=== PATIENT | female | born 1960 | race Caucasian/White ===

== ENCOUNTER → 2020-10-12 02:48 | Outpatient (CLI) | payer BC, SELFPAY ==
[2020-10-12 19:42] LABS: SARS-CoV-2 RNA PCR Negative
== END ==
PROVIDERS: PCP Family Medicine; Visit Provider Plastic Surgery
DX: Z01.812 Encounter for preprocedural laboratory examination (principal); Z20.822 Contact with and (suspected) exposure to COVID-19
CPT/HCPCS: C9803; U0003; U0005

== ENCOUNTER 2020-10-16 00:45 | Day surgery (SDC) | payer BC, SELFPAY ==
[2020-10-10 10:39] VITALS: BMI 41.5
--- NOTE | 2020-10-15 13:48 | P.PNAN_ITS ---
Anes - Initial Pre Proc Eval Procedure: Operation Date: 10/16/20 08:30 Proposed Procedures p Wide Excision Of Melanoma Right Mid Back With [place] Lymph Node Biopsy - Parker Foster MD s Split Thickness Skin Graft - Parker Foster MD Date/Time: 10/15/20 13:48 Surgeon: Parker Foster MD Pre Op Diagnosis: Melanoma, Right Mid Back Patient Data Age: 60 Gender: F Height: 5 ft 5 in Weight: 113.4 kg Allergies Allergy/AdvReac Type Severity Reaction Status Date / Time No Known Allergies Allergy Unverified 02/20/19 08:40 Home Medications Medication Instructions Recorded Confirmed Type aspirin 81 mg tablet,delayed 81 mg PO DAILY 07/19/19 10/10/20 History release atorvastatin 40 mg tablet 40 mg PO DAILY 07/19/19 10/10/20 History cholecalciferol (vitamin D3) 25 1,000 unit PO DAILY 07/19/19 10/10/20 History mcg (1,000 unit) capsule ldmvonpgtfke-mwcwjhmj-vuudlw tablet 1 tablet PO DAILY 07/19/19 10/10/20 History omega-3 fatty acids 1,000 mg 1,000 mg PO DAILY 07/19/19 10/10/20 History capsule ezetimibe 10 mg tablet 10 mg PO DAILY 10/05/19 10/10/20 History amlodipine 5 mg tablet 5 mg PO DAILY #90 tablet 01/24/20 10/10/20 Rx irbesartan 300 mg tablet 300 mg PO DAILY #90 tablet 01/24/20 10/10/20 Rx metformin 500 mg tablet,extended 1,000 mg PO BID #180 tablet 10/08/20 10/10/20 Rx release 24hr [facility] Past Medical History Medical History (Updated 10/03/20 @ 07:53 by Arvin Hurst MD) Abnormal fasting glucose Anemia Controlled diabetes mellitus (09/26/20) Malignant melanoma (~09/26/20) Woody level greater than IV on right upper back Neoplasm of skin of back Vitamin D deficiency, unspecified Family History Family History (Updated 12/14/18 @ 17:36 by DOCTOR UNKNOWN) Mother Diabetes mellitus, Onset Age: 78 Family history of cardiovascular disease Acute myocardial infarction Father Diabetes mellitus Family history of cardiovascular disease Acute myocardial infarction Cerebrovascular accident Carcinoma of colon Malignant neoplasm of prostate Sibling Diabetes mellitus Grandparent Family history of malignant neoplasm of bone Family history of malignant neoplasm of breast Social History Social History (Updated 09/26/20 @ 09:59 by Brit Ojeda MA) Smoking status: Never smoker Alcohol intake: never Substance use: never Substance use type: does not use Spiritual care concerns: No Anes - Eval Final PreProcedure Day of Procedure 10/15/20 13:48 Informed Consent: The patient's anesthetic plan and its attendant risks and benefits were discussed with the patient/family/POA. Questions were solicited and answers provided to the satisfaction of the patient/family/POA.
--- NOTE | 2020-10-15 15:43 | WPDANESEPPF ---
Anes - Initial Pre Proc Eval Procedure: Operation Date: 10/16/20 08:30 Proposed Procedures p Wide Excision Of Melanoma Right Mid Back With [place] Lymph Node Biopsy - Parker Foster MD s Split Thickness Skin Graft - Parker Foster MD Date/Time: 10/15/20 15:43 Surgeon: Parker Foster MD Pre Op Diagnosis: Melanoma, Right Mid Back Patient Data Age: 60 Gender: F Height: 1.65 m Weight: 113.4 kg Allergies Allergy/AdvReac Type Severity Reaction Status Date / Time No Known Allergies Allergy Unverified 10/16/20 07:56 Home Medications Medication Instructions Recorded Confirmed Type aspirin 81 mg tablet,delayed 81 mg PO DAILY 07/19/19 10/10/20 History release atorvastatin 40 mg tablet 40 mg PO DAILY 07/19/19 10/10/20 History cholecalciferol (vitamin D3) 25 1,000 unit PO DAILY 07/19/19 10/10/20 History mcg (1,000 unit) capsule veohxprfrvbc-qyggceem-hwqbxt tablet 1 tablet PO DAILY 07/19/19 10/10/20 History omega-3 fatty acids 1,000 mg 1,000 mg PO DAILY 07/19/19 10/10/20 History capsule ezetimibe 10 mg tablet 10 mg PO DAILY 10/05/19 10/10/20 History amlodipine 5 mg tablet 5 mg PO DAILY #90 tablet 01/24/20 10/10/20 Rx irbesartan 300 mg tablet 300 mg PO DAILY #90 tablet 01/24/20 10/10/20 Rx metformin 500 mg tablet,extended 1,000 mg PO BID #180 tablet 10/08/20 10/10/20 Rx release 24hr Patient hx anesthesia problems: none Family hx anesthesia problems: none [facility] Past Medical History Medical History (Updated 10/15/20 @ 15:44 by Scott Crews MD) Abnormal fasting glucose Anemia Atherosclerosis of [place] coronary artery of [place] heart without angina pectoris Body mass index (BMI) 40.0-44.9, adult (12/28/18) CAD (coronary artery disease) Controlled diabetes mellitus (09/26/20) Essential (primary) hypertension Malignant melanoma (~09/26/20) Woody level greater than IV on right upper back Mixed hyperlipidemia Neoplasm of skin of back LION on CPAP Primary osteoarthritis involving multiple joints Vitamin D deficiency, unspecified Family History Family History (Updated 12/14/18 @ 17:36 by DOCTOR UNKNOWN) Mother Diabetes mellitus, Onset Age: 78 Family history of cardiovascular disease Acute myocardial infarction Father Diabetes mellitus Family history of cardiovascular disease Acute myocardial infarction Cerebrovascular accident Carcinoma of colon Malignant neoplasm of prostate Sibling Diabetes mellitus Grandparent Family history of malignant neoplasm of bone Family history of malignant neoplasm of breast Social History Social History (Updated 09/26/20 @ 09:59 by Brit Ojeda MA) Smoking status: Never smoker Alcohol intake: never Substance use: never Substance use type: does not use Living arrangements: with family Spiritual care concerns: No Anes - Eval Final PreProcedure Day of Procedure 10/15/20 15:43 Patient weight: morbidly obese Heart: regular rate and rhythm Lungs: clear to auscultation and normal air movement Airway: Mallampati scale class II Neurological: alert and oriented Last oral intake: >/= 8 hours ASA classification: III Emergent: no Anesthetic plan: proceed Anesthesia type and monitoring: general LMA and ETT Informed Consent: The patient's anesthetic plan and its attendant risks and benefits were discussed with the patient/family/POA. Questions were solicited and answers provided to the satisfaction of the patient/family/POA.
[2020-10-16] VITALS (10 sets, daily range): BP systolic 108–153; BP diastolic 66–81; PULSE 69–80; RESP 12–20; TEMP 36.3–36.8; O2SAT 96–100
--- NOTE | ~2020-10-16 | NM_ITS ---
EXAMINATION: NM sentinel node w imaging DATE: 10/16/2020 08:02 INDICATION: Posterior thorax melanoma. TECHNIQUE: 0.555 mCi Tc-99m filtered sulfur colloid was injected in 4 aliquots around a skin lesion i n the posterior thorax. Scintigraphic images were obtained. FINDINGS: Activity accumulates first in a right axillary lymph node and then in a left axillary lymph node. IMPRESSION: 1. Activity accumulates first in a right axillary lymph node and then in a left axillary lymph node. Reviewed, dictated and finalized at location A. [facility]
[2020-10-16] MEDS: LACTATED RINGERS 1,000 ML 30 ML IV CONT ×2 (06:40→11:32)
--- NOTE | 2020-10-16 07:14 | WPDHPUPDATE1 ---
History and Physical Update Update Date/Time: 10/16/20 07:14 History and Physical has been reviewed, including an updated exam of the patient. There are NO changes in the patient's condition. Risks, benefits, and alternatives have been discussed and questions answered. Patient agrees to proceed with procedure.
--- NOTE | 2020-10-16 07:15 | WPDHPUPDATE1 ---
History and Physical Update Update Date/Time: 10/16/20 07:15 History and Physical has been reviewed, including an updated exam of the patient. There are NO changes in the patient's condition. Risks, benefits, and alternatives have been discussed and questions answered. Patient agrees to proceed with procedure.
--- NOTE | 2020-10-16 07:56 | ECG_ITS ---
Measurements Intervals [place] Rate: 69 P: 52 WA: 180 QRS: 6 QRSD: 97 T: 3 QT: 363 QTc: 391 Interpretive Statements SINUS RHYTHM DELAYED PRECORDIAL R/S TRANSITION CONSIDER INFERIOR INFARCT, AGE INDETERMINATE BASELINE ARTIFACT- V1 ABNORMAL ECG Electronically Signed On 10-16-2020 8:49:19 [employer] by Mark Rivera D.O.
[2020-10-16 08:15] LABS: Glucose Point of Care 106 (65-105)
[2020-10-16] MEDS: LIDO 1%/EPINEPHRINE 1:100,000 50 ML VIAL INFILTRATE (09:33)
--- NOTE | 2020-10-16 11:46 | P.OPB_ITS ---
Procedure Note - Brief Procedure Note - Brief Date of procedure: 10/16/20 Pre-op diagnosis: Melanoma, Right Mid Back Post-op diagnosis: same Procedure performed: Wide excision of melanoma of right back with intermediate repair 9 cm and sentinel lymph node biopsy both axillae. Anesthesia: GETA Surgeon: Parker Foster MD [employer]or: Nikki Pino Estimated blood loss (mL): 100 Drains: No Packing: No Pathology: yes Complications: No immediate complications Condition: stable Disposition: PACU
--- NOTE | 2020-10-16 12:20 | PM.PROC ---
Procedure Note - Detailed Date of procedure: 10/16/20 Pre-op diagnosis: Melanoma, Right Mid Back Post-op diagnosis: same Procedure performed: 5 cm, wide excision of melanoma right mid back with intermediate repair 9 cm. Bilateral axillary sentinel node biopsies. Description of procedure: The patient was given her nuclear medicine around 802 this morning. She was brought back to the holding area. The tumor site on the back and the 2 imaged sentinel node sites, 1 in each axilla, were marked by the surgeon. She was taken to the operating room and transferred to the operating table. She was given general endotracheal anesthesia and then Edgar turned toward her left side to for access to the back. Pressure points and the left axilla were padded. The back was prepped and draped in usual fashion. The site was carefully examined and marked around the apparent biopsy site this was measured as a 1 cm ellipse. From their radiating 2 cm in all directions a wide excision was marked. This area was infiltrated with 1% lidocaine with epinephrine. The incisions made with a 15 blade. The dissection was carried through the very thick subcutaneous tissue to the deep fascia which was taken with the specimen. No orienting sutures were applied. The specimen was sent for permanent section. The subcutaneous tissue just superficial to the deep fascia was incised and elevated for advancement. We area to coapted the wound margins nicely with 0 Vicryl through the superficial fascia and oa Vicryl in the dermis. The skin was closed with a running 5 0 nylon. At this point the patient was turned to her back. The 2 arms were prepped and draped in extension on separate arm boards. The gamma probe was used at that point to identify activity in the axillae. I was impressed that not a great deal of activity was registered. We chose to do the right side 1st. The radiologist had indicated that the right side accumulated activity 1st. The relative hot spot in the anterior aspect of the axilla was identified and an incision was made overlying that . We dissected through the very thick subcutaneous tissue to the axillary fascia and opened that. We monitored the probe activity quite regularly and had difficulty identifying any tissue with notable activity. It seemed that a lot of activity probably came from her back. We finally took a clump of fatty tissue that had registered as high as 116. This specimen was taken out at 1035. Surrounding tissue was generally in the single digits. A secondary collection of fatty tissue that I thought might contain lymph nodes was also taken from this side. Away from the patient, this tissue registered very little activity. The remaining axillary bed remained in single digits. We packed that site with saline gauze and went to the left. On the left side again little activity was noted. An ncision was made along the posterior axilla on this side and dissection was carried to the axillary fascia. This area was opened and the gamma probe again introduced to locate active nodes. None were found. Once again the greatest activity seemed to come from her back. Once again we identified some tissue that appeared to contain lymph nodes and sent it for pathology. At no site on either axilla did I notice any enlargement of lymph nodes. I am not certain that I actually saw any lymph nodes. There were certainly no darkened lymph nodes. The wounds were closed with 3-0 Vicryl in the superficial fascia and dermis at the axillae. Those wounds were finished with glue. No drains were placed. The wound on the back was dressed with Xeroform gauze and Tegaderm. Patient was discharged from the operating room in stable condition taken to the recovery room. She will be discharged with prescription for hydrocodone . I explained the operative findings to her . Anesthesia: GETA Surgeon: Parker Foster MD Estimated blood loss (mL): 100 Drains: No Packing
[2020-10-16] MEDS: oxyCODONE HCL (*CRX) 5 MG TAB IR PO (12:40)
[2020-10-16] MEDS: fentaNYL CITRATE INJ (*CRX) 100 MCG/2 ML VIAL 25 MCG IV PUSH (13:13)
== END 2020-10-16 14:25 | disposition home or self-care (01) ==
PROVIDERS: PCP Family Medicine; Visit Provider Plastic Surgery
PROC: (CPT 11606; principal; 2020-10-16 08:30)
DX: C43.59 Malignant melanoma of other part of trunk (principal); I25.10 Atherosclerotic heart disease of native coronary artery without angina pectoris; I10 Essential (primary) hypertension; E11.9 Type 2 diabetes mellitus without complications; E78.2 Mixed hyperlipidemia; G47.33 Obstructive sleep apnea (adult) (pediatric); E55.9 Vitamin D deficiency, unspecified; D64.9 Anemia, unspecified; M89.49 Other hypertrophic osteoarthropathy, multiple sites; Z79.84 Long term (current) use of oral hypoglycemic drugs; Z79.82 Long term (current) use of aspirin; E66.01 Morbid (severe) obesity due to excess calories; Z68.41 Body mass index [BMI] 40.0-44.9, adult
CPT/HCPCS: 11606; 12034; 38525; 78195; 82948; 88305; 88307; 88342; 93005; A9270; A9520; C1713; J0171; J0330; J1100; J1940; J2405; J2704; J3010; J7120

== ENCOUNTER 2020-11-01 14:53 | Outpatient (CLI) | payer BC, SELFPAY ==
[2020-11-01 15:20] LABS: Basophils Absolute Auto 0.1 K/mm3 (0.0-0.1); Basophils Percent Auto 0.7 % (0.2-1.2); Eosinophils Absolute Auto 0.2 K/mm3 (0-0.3); Eosinophils Percent Auto 1.9 % (0-4.4); Hematocrit 38.4 % (37.0-47.0); Hemoglobin 12.7 g/dL (12.0-15.0); Immature Granulocyte Absolute 0.02 K/mm3 (0.00-0.031); Immature Granulocyte Percent A 0.2 % (0-0.5); Lymphocytes Absolute Auto 2.38 K/mm3 (0.9-3.2); Lymphocytes Percent Auto 23.6 % (18.3-44.2); Mean Corpuscular HGB Conc 33.1 g/dl (32-36); Mean Corpuscular Volume 90.6 fl (80-100); Mean Platelet Volume 8.8 fl (7.4-10.4); Monocytes Absolute Auto 0.8 K/mm3 (0.1-0.6); Monocytes Percent Auto 7.8 % (2.6-8.5); Neutrophils Absolute Auto 6.6 K/mm3 (1.3-6.7); Neutrophils Percent Auto 65.8 % (45.5-73.1); Platelet Count Result 327 k/mm3 (150-375); Red Blood Count 4.24 M/mm3 (4.2-5.4); Red Cell Distribution Width 14.2 % (11.5-14.5); White Blood Count 10.1 K/mm3 (4.5-10.0)
[2020-11-01 15:37] LABS: Alanine Aminotransferase 19 U/L (4-35); Albumin Level 4.2 g/dL (3.5-5.1); Alkaline Phosphatase 62 U/L (38-126); Anion Gap 7 mmol/L (8-16); Aspartate Amino Transferase 22 U/L (14-36); Bilirubin,Total 0.3 mg/dL (0.2-1.3); Blood Urea Nitrogen 10 mg/dL (7-17); Calcium 9.3 mg/dL (8.4-10.2); Carbon Dioxide 31 mmol/L (22-30); Chloride 106 mmol/L (98-107); Estimated Glomerular Filt Rate > 60; Glucose 141 mg/dL (65-105); Lactate Dehydrogenase 394 U/L (313-618); Potassium 3.7 mmol/L (3.4-5.0); Sodium 144 mmol/L (137-145)
== END 2020-11-01 14:54 | disposition home or self-care (01) ==
PROVIDERS: PCP Family Medicine; Visit Provider Internal Medicine Hematology & Oncology
DX: C43.59 Malignant melanoma of other part of trunk (principal)
CPT/HCPCS: 36415; 80053; 83615; 85025

== ENCOUNTER 2020-11-06 14:21 | Outpatient (CLI) | payer BC, SELFPAY ==
--- NOTE | ~2020-11-06 | CT_ITS ---
EXAMINATION: CT diagnostic chest w con EXAM DATE: 11/06/2020 14:57 INDICATION: Shortness of breath. TECHNIQUE: Spiral CT of the chest following intravenous injection of 75 mL Omnipaque 350. Axial, cor onal and sagittal images were reviewed. Coronal maximum intensity pixel images of chest reviewed. T he dose-length product (DLP) for this examination was 490.32 mGy-cm. The exposure was tailored accor ding to patient size (auto mA exposure control), and iterative reconstruction (ASIR) was used as mir tional dose reduction technique. There is no prior study for comparison. FINDINGS: The lungs are clear. There are no pleural or pericardial effusions. Tracheobronchial t ree is patent. There is no mediastinal, hilar or axillary lymphadenopathy. There is no pneumothor ax. Heart normal in size. There is mild coronary arterial calcification, arterial sclerosis. No c entral pulmonary emboli. Upper abdomen is unremarkable. There is mild thoracic spondylosis without osteoblastic or osteolytic lesions identified. Right axillary surgical clips. IMPRESSION: 1. Unremarkable CT chest examination. Reviewed, dictated and finalized at location A.
== END 2020-11-06 14:22 | disposition home or self-care (01) ==
PROVIDERS: PCP Family Medicine; Visit Provider Internal Medicine Hematology & Oncology
DX: R06.02 Shortness of breath (principal)
CPT/HCPCS: 71260; Q9967

== ENCOUNTER → 2021-01-11 03:46 | Outpatient (CLI) | payer BC, SELFPAY ==
[2021-01-11 19:45] LABS: SARS-CoV-2 RNA PCR Negative
== END ==
PROVIDERS: PCP Family Medicine; Visit Provider Internal Medicine Gastroenterology
DX: Z01.812 Encounter for preprocedural laboratory examination (principal); Z20.822 Contact with and (suspected) exposure to COVID-19
CPT/HCPCS: C9803; U0003; U0005

== ENCOUNTER 2021-01-15 01:34 | Day surgery (SDC) | payer BC, SELFPAY ==
[2021-01-01 15:20] VITALS: BMI 44.4
[2021-01-15 07:47] VITALS: BP 164/85; PULSE 80; RESP 20; TEMP 36.3; O2SAT 100
[2021-01-15] MEDS: LACTATED RINGERS 1,000 ML 150 ML IV CONT (07:57)
[2021-01-15 08:00] LABS: Glucose Point of Care 123 mg/dl (65-105)
--- NOTE | 2021-01-15 08:19 | WPDANESEPPF ---
Anes - Initial Pre Proc Eval Procedure: Operation Date: 01/15/21 08:30 Proposed Procedures p Screening Colonoscopy - Jairo Medrano MD Date/Time: 01/15/21 08:19 Surgeon: Jairo Medrano MD Pre Op Diagnosis: family hx of colon ca, neoplasm screening Patient Data Age: 60 Gender: F Height: 5 ft 3 in Weight: 112 kg Last Vital Signs Temp 97.4 F L 01/15/21 07:47 Pulse 80 01/15/21 07:47 Resp 20 01/15/21 07:47 BP 164/85 H 01/15/21 07:47 Pulse Ox 100 01/15/21 07:47 Allergies Allergy/AdvReac Type Severity Reaction Status Date / Time No Known Allergies Allergy Verified 01/15/21 07:36 Home Medications Medication Instructions Recorded Confirmed Type aspirin 81 mg tablet,delayed 81 mg PO DAILY 07/19/19 01/01/21 History release atorvastatin 40 mg tablet 40 mg PO DAILY 07/19/19 01/01/21 History cholecalciferol (vitamin D3) 25 1,000 unit PO DAILY 07/19/19 01/01/21 History mcg (1,000 unit) capsule heuzqharuhtm-adsjrrui-husred tablet 1 tablet PO DAILY 07/19/19 01/01/21 History omega-3 fatty acids 1,000 mg 1,000 mg PO DAILY 07/19/19 01/01/21 History capsule ezetimibe 10 mg tablet 10 mg PO DAILY 10/05/19 01/01/21 History amlodipine 5 mg tablet 5 mg PO DAILY #90 tablet 01/24/20 01/01/21 Rx irbesartan 300 mg tablet 300 mg PO DAILY #90 tablet 01/24/20 01/01/21 Rx metformin 500 mg tablet,extended 1,000 mg PO BID #180 tablet 10/08/20 01/01/21 Rx release 24hr hydrocodone-acetaminophen 1 tablet PO Q4H PRN #14 tablet 10/16/20 01/01/21 Rx Laboratory Tests 01/15/21 07:57 POC Capillary Glucose 123 mg/dl H mg/dl (65-105) Patient hx anesthesia problems: none Family hx anesthesia problems: none PMFSH Past Medical History Medical History (Updated 10/16/20 @ 13:07 by Arvin Hurst MD) Abnormal fasting glucose Anemia Atherosclerosis of [place] coronary artery of [place] heart without angina pectoris Body mass index (BMI) 40.0-44.9, adult (12/28/18) CAD (coronary artery disease) Controlled diabetes mellitus (09/26/20) Essential (primary) hypertension Malignant melanoma (~09/26/20) Woody level greater than IV on right upper back Wide excision 5 cm 10/16/2020 Mixed hyperlipidemia Neoplasm of skin of back LION on CPAP Primary osteoarthritis involving multiple joints Vitamin D deficiency, unspecified Family History Family History (Updated 12/14/18 @ 17:36 by DOCTOR UNKNOWN) Mother Diabetes mellitus, Onset Age: 78 Family history of cardiovascular disease Acute myocardial infarction Father Diabetes mellitus Family history of cardiovascular disease Acute myocardial infarction Cerebrovascular accident Carcinoma of colon Malignant neoplasm of prostate Sibling Diabetes mellitus Grandparent Family history of malignant neoplasm of bone Family history of malignant neoplasm of breast Social History Social History (Updated 09/26/20 @ 09:59 by Brit Ojeda MA) Smoking status: Never smoker Alcohol intake: never Substance use: never Substance use type: does not use Living arrangements: with family Gender identity (if verbalized by the patient): Female Spiritual care concerns: No Anes - Eval Final PreProcedure Day of Procedure 01/15/21 08:19 Patient weight: morbidly obese Heart: regular rate and rhythm Lungs: clear to auscultation Airway: Mallampati scale class III Neurological: alert and oriented Last oral intake: >/= 8 hours ASA classification: IV Emergent: no Anesthetic plan: proceed Anesthesia type and monitoring: general GIVS and standard monitoring Informed Consent: The patient's anesthetic plan and its attendant risks and benefits were discussed with the patient/family/POA. Questions were solicited and answers provided to the satisfaction of the patient/family/POA.
--- NOTE | 2021-01-15 08:25 | WPDGICN ---
Assessment and Plan Assessment and plan (1) Family history of colon cancer in father: Code(s): Z80.0 - Family history of malignant neoplasm of digestive organs Status: Acute Assessment and Plan: Patient's father had colon cancer. There is no other reported family history of polyps or cancer. Plan is for surveillance colonoscopy now in 5 year intervals in the future. GI Consult Note Consult date/time: 01/15/21 08:25 HPI: Eli Dykes is a 60 year old female Presents for screening colonoscopy. Patient reports that her own weight appetite bowel movements are normal. She denies abdominal pain. She has had no bleeding. Family history is significant her father has had colon cancer. Patient presents today for screening colonoscopy. Review of Systems Review of Systems: All systems reviewed & are unremarkable except as noted in HPI and below PMFSH Past Medical History Medical History (Updated 10/16/20 @ 13:07 by Arvin Hurst MD) Abnormal fasting glucose Anemia Atherosclerosis of [place] coronary artery of [place] heart without angina pectoris Body mass index (BMI) 40.0-44.9, adult (12/28/18) CAD (coronary artery disease) Controlled diabetes mellitus (09/26/20) Essential (primary) hypertension Malignant melanoma (~09/26/20) Woody level greater than IV on right upper back Wide excision 5 cm 10/16/2020 Mixed hyperlipidemia Neoplasm of skin of back LION on CPAP Primary osteoarthritis involving multiple joints Vitamin D deficiency, unspecified Family History Family History (Updated 12/14/18 @ 17:36 by DOCTOR UNKNOWN) Mother Diabetes mellitus, Onset Age: 78 Family history of cardiovascular disease Acute myocardial infarction Father Diabetes mellitus Family history of cardiovascular disease Acute myocardial infarction Cerebrovascular accident Carcinoma of colon Malignant neoplasm of prostate Sibling Diabetes mellitus Grandparent Family history of malignant neoplasm of bone Family history of malignant neoplasm of breast Social History Social History (Updated 09/26/20 @ 09:59 by Brit Ojeda MA) Smoking status: Never smoker Alcohol intake: never Substance use: never Substance use type: does not use Living arrangements: with family Gender identity (if verbalized by the patient): Female Spiritual care concerns: No Meds Home Medications and Allergies Home Medications Medication Instructions Recorded Confirmed Type aspirin 81 mg tablet,delayed 81 mg PO DAILY 07/19/19 01/01/21 History release atorvastatin 40 mg tablet 40 mg PO DAILY 07/19/19 01/01/21 History cholecalciferol (vitamin D3) 25 1,000 unit PO DAILY 07/19/19 01/01/21 History mcg (1,000 unit) capsule xvcmuhuacega-mdsosmzo-wrtoil tablet 1 tablet PO DAILY 07/19/19 01/01/21 History omega-3 fatty acids 1,000 mg 1,000 mg PO DAILY 07/19/19 01/01/21 History capsule ezetimibe 10 mg tablet 10 mg PO DAILY 10/05/19 01/01/21 History amlodipine 5 mg tablet 5 mg PO DAILY #90 tablet 01/24/20 01/01/21 Rx irbesartan 300 mg tablet 300 mg PO DAILY #90 tablet 01/24/20 01/01/21 Rx metformin 500 mg tablet,extended 1,000 mg PO BID #180 tablet 10/08/20 01/01/21 Rx release 24hr hydrocodone-acetaminophen 1 tablet PO Q4H PRN #14 tablet 10/16/20 01/01/21 Rx Allergies Allergy/AdvReac Type Severity Reaction Status Date / Time No Known Allergies Allergy Verified 01/15/21 07:36 Vital Signs Vital Signs - 24 hr 01/15/21 07:47 Temperature 97.4 F L Pulse Rate 80 Respiratory Rate 20 Blood Pressure 164/85 H Pulse Oximetry 100 Exam Narrative: Exam Narrative: Physical exam reveals patient be alert. Vital signs stable. HEENT exam is unremarkable. Patient is anicteric. Lungs are clear to auscultation and percussion. Heart is without murmur or extra sounds. Abdominal exam bowel sounds are present soft nontender with no organomegaly. Digital external rectal exam is normal.
[2021-01-15 08:58] VITALS: BP 108/69; PULSE 84; RESP 18; O2SAT 92
[2021-01-15 09:08] VITALS: BP 111/73; PULSE 72; RESP 18; O2SAT 94
[2021-01-15 09:18] VITALS: BP 117/76; PULSE 73; RESP 20; O2SAT 98
== END 2021-01-15 09:30 | disposition home or self-care (01) ==
PROVIDERS: PCP Family Medicine; Visit Provider Internal Medicine Gastroenterology
PROC: 0DJD8ZZ Inspection of Lower Intestinal Tract, Via Natural or Artificial Opening Endoscopic (ICD-10-PCS; CPT 45378; principal; 2021-01-15 08:30)
DX: Z12.11 Encounter for screening for malignant neoplasm of colon (principal); K63.5 Polyp of colon; K64.8 Other hemorrhoids; Z80.0 Family history of malignant neoplasm of digestive organs; I25.10 Atherosclerotic heart disease of native coronary artery without angina pectoris; I10 Essential (primary) hypertension; E11.9 Type 2 diabetes mellitus without complications; E78.2 Mixed hyperlipidemia; G47.33 Obstructive sleep apnea (adult) (pediatric); E55.9 Vitamin D deficiency, unspecified; M89.49 Other hypertrophic osteoarthropathy, multiple sites; Z85.820 Personal history of malignant melanoma of skin; D64.9 Anemia, unspecified; Z79.82 Long term (current) use of aspirin; Z79.84 Long term (current) use of oral hypoglycemic drugs; Z79.891 Long term (current) use of opiate analgesic; E66.01 Morbid (severe) obesity due to excess calories; Z68.41 Body mass index [BMI] 40.0-44.9, adult
CPT/HCPCS: 45385; 82948; 88305; J2001; J2704; J7120

== ENCOUNTER 2021-09-03 13:05 | Outpatient (CLI) | payer BC, SELFPAY ==
--- NOTE | ~2021-09-03 | US_ITS ---
EXAMINATION: US biopsy lymph node DATE: 09/03/2021 14:33 INDICATION: Right-sided axillary mass. Prior melanoma. TECHNIQUE: The procedure including the risks and benefits was discussed with the patient. Risks discu ssed included bleeding and infection. The patient understood the risks and agreed to proceed. The sk in overlying the right axilla was prepped and draped in usual sterile fashion. Anesthetic was admini stered with 1% lidocaine subcutaneously. An 18 gauge core biopsy needle was advanced under continuou s ultrasound observation to the lesion of interest. 4 core biopsy specimens were obtained. The need le was removed and the entry site was cleaned and dressed. Post procedure ultrasound demonstrated no hemorrhage. FINDINGS: Ultrasound images demonstrate a 3.8 x 3.4 x 3.2 cm hypoechoic mass at the right axilla conc erning for metastatic disease. IMPRESSION: 1. Successful Ultrasound-guided biopsy of a 3.8 cm right axillary mass concerning for metastatic lymp hadenopathy. Reviewed, dictated and finalized at location A. OR ADVISORY IMPRESSION: 1. Successful Ultrasound-guided biopsy of a 3.8 cm right axillary mass concerni ng for metastatic lymphadenopathy.
== END 2021-09-03 13:06 | disposition home or self-care (01) ==
LOC: ANHIMG 13:06
PROVIDERS: PCP Family Medicine; Visit Provider Plastic Surgery
DX: C77.3 Secondary and unspecified malignant neoplasm of axilla and upper limb lymph nodes (principal); R59.0 Localized enlarged lymph nodes
CPT/HCPCS: 38505; 76942; 88305; 88342

== ENCOUNTER 2021-09-25 11:41 | Outpatient (CLI) | payer BC, SELFPAY ==
--- NOTE | ~2021-09-25 | PE_ITS ---
EXAMINATION: PET skull to mid thigh DATE: 09/25/2021 15:54 INDICATION: Malignant melanoma. TECHNIQUE: Blood glucose level was 95 mg/dL. 6.537 mCi of 18-fluorodeoxyglucose (18-FDG) was administ ered i.v. Low dose computed tomography (CT) images were acquired from the skull vertex to the proxima l thighs for attenuation correction and anatomic localization. Automated exposure control was employe d. Dose-length product (DLP) was 1178 mGy-cm. Positron emission tomography (PET) images were acquired in the same distribution. COMPARISON: chest CT 11/06/20, CT abdomen and pelvis 02/15/2019 FINDINGS: Head/neck: There is increased activity in the oropharynx without abnormal CT correlate, likely physio logic. There are no pathologically enlarged lymph nodes. Chest: The lungs demonstrate mild atelectasis. No pleural effusion. The heart size is normal. There a re coronary artery calcifications. No pericardial effusion. There is subcutaneous fat stranding in ri ght posterior thorax with maximum SUV of 1.6, likely the site of primary malignancy resection. There is a 4.3 x 3.4 cm bronson mass in right axilla with maximum SUV of 18.0. There is a 2.8 x 1.8 cm left a xillary lymph node with maximum SUV of 2.8. Abdomen/pelvis/proximal thighs: The liver, gallbladder, spleen, pancreas, adrenal glands, and kidneys are normal. There are no dilated loops of bowel. There is diverticulosis of the colon without eviden ce of diverticulitis. There are no pathologically enlarged lymph nodes. There is no free intraperiton eal fluid. There is severe lower lumbar spondylosis. There is increased activity in bone marrow in th e lumbar spine and pelvis without abnormal CT correlate, likely bone marrow stimulation. There is a h emangioma in L5. IMPRESSION: 1. Bilateral axillary lymphadenopathy with increased activity, consistent with metastatic disease. Reviewed, dictated and finalized at location E. IN MAKER
[2021-09-25 12:13] LABS: Glucose Point of Care 95 mg/dl (65-105)
== END 2021-09-25 11:42 | disposition home or self-care (01) ==
LOC: ANHIMG 11:42
PROVIDERS: PCP Family Medicine; Visit Provider Internal Medicine Hematology & Oncology
DX: C43.59 Malignant melanoma of other part of trunk (principal)
CPT/HCPCS: 78815; A9552

== ENCOUNTER 2021-09-30 09:55 | Outpatient (CLI) | payer BC, SELFPAY ==
[2021-09-30 10:30] LABS: Basophils Absolute Auto 0.1 K/mm3 (0.0-0.1); Basophils Percent Auto 0.7 % (0.2-1.2); Eosinophils Absolute Auto 0.2 K/mm3 (0-0.3); Eosinophils Percent Auto 2.2 % (0-4.4); Hematocrit 42.2 % (37.0-47.0); Immature Granulocyte Absolute 0.03 K/mm3 (0.00-0.031); Immature Granulocyte Percent A 0.4 % (0-0.5); Lymphocytes Absolute Auto 1.65 K/mm3 (0.9-3.2); Lymphocytes Percent Auto 19.9 % (18.3-44.2); Mean Corpuscular HGB Conc 33.2 g/dl (32-36); Mean Corpuscular Hemoglobin 31.1 pg (26-34); Mean Corpuscular Volume 93.8 fl (80-100); Mean Platelet Volume 8.7 fl (7.4-10.4); Monocytes Absolute Auto 0.6 K/mm3 (0.1-0.6); Monocytes Percent Auto 7.2 % (2.6-8.5); Neutrophils Absolute Auto 5.8 K/mm3 (1.3-6.7); Neutrophils Percent Auto 69.6 % (45.5-73.1); Platelet Count Result 289 k/mm3 (150-375); Red Cell Distribution Width 13.3 % (11.5-14.5); White Blood Count 8.3 K/mm3 (4.5-10.0)
[2021-09-30 10:38] LABS: Prothrombin Time 12.6 Seconds (11.1-14.7)
[2021-09-30 10:39] LABS: Partial Thromboplastin Time 23.5 SECONDS (22.3-36.8)
== END 2021-09-30 09:56 | disposition home or self-care (01) ==
LOC: ANHSURGERY 09:58
PROVIDERS: PCP Family Medicine; Visit Provider Surgery
DX: C43.9 Malignant melanoma of skin, unspecified (principal); Z01.818 Encounter for other preprocedural examination
CPT/HCPCS: 36415; 85025; 85610; 85730

== ENCOUNTER 2021-09-30 10:05 | Outpatient (CLI) | payer BC, SELFPAY ==
[2021-09-30 10:43] LABS: Anion Gap 8 mmol/L (8-16); Blood Urea Nitrogen 6 mg/dL (7-17); Calcium 9.4 mg/dL (8.4-10.2); Carbon Dioxide 27 mmol/L (22-30); Chloride 107 mmol/L (98-107); Estimated Glomerular Filt Rate > 60; Glucose 127 mg/dL (65-110); Potassium 4.5 mmol/L (3.4-5.0); Sodium 142 mmol/L (137-145)
== END 2021-09-30 10:06 | disposition home or self-care (01) ==
PROVIDERS: PCP Family Medicine; Visit Provider Nurse Practitioner Family
DX: E11.9 Type 2 diabetes mellitus without complications (principal)
CPT/HCPCS: 36415; 80048; 83036

== ENCOUNTER 2021-10-02 01:41 | Day surgery (SDC) | payer BC, SELFPAY ==
[2021-09-24 09:50] VITALS: BMI 40.4
--- NOTE | 2021-09-24 10:08 | PC.NURSE ---
Report to the Outpatient Waiting Room, entrance under the green pavilion located off [facility], at time 6:00 on date 10/02/21. OR Time: 7:30. - You will be asked a series of questions to screen for COVID 19 for your protection. - A mask is required within the hospital. - No visitors are allowed at this time. Preoperative COVID Testing Requirements: No COVID Test needed if: (proof is required; if not received patient will have Rapid Test prior to entry) - Patient has received COVID Vaccine at least 14 days prior to procedure date or - Patient has positive COVID test result within last 90 days of surgery date. COVID Test needed if above criteria is not met Patients may have clear liquids (water, carbonated beverages, clear teas, apple juice) until 3 hours prior to surgery (4:30) with a maximum of 20 ounces. - No food from midnight until time of surgery Take the following medications with a SIP of water the morning of surgery: AMLODIPINE Medications to discontinue per physician: VITAMINS/SUPPLEMENTS Date to take last dose: 09/28/21 Please no make-up, nail occitan, hairspray, perfume, deodorant, or body powder the day of surgery. No jewelry (including any body piercings) or valuables the day of surgery, leave them at home. Please take a shower or bath the night before, or the morning of, surgery with an antibacterial soap. Wear comfortable, loose fitting clothing. - Jewelry must be removed prior to entering the operating room. Rings and piercings that are not removed may be cut off. - The hospital will not accept responsibility for valuables. - Please leave all valuables, including medications, at home the day of surgery. If you are going home after surgery, a licensed yard driver must drive you home. - NO public transportation without another adult. - We recommend that an adult stay with you for 24 hours following discharge. - We also recommend that you do not drive, make important decision, drink alcoholic beverages, or take any drugs that were not prescribed by your health care provider for at least 24 hours after your discharge time. Follow any additional instructions given to you from your surgeon. Telephone instructions given to SKYLA DAVIDSON and asked if any additional questions and then verbalized understanding. Patient advised to call surgeon office or pre surgery nurse liaison [phone] if any additional questions.
--- NOTE | 2021-10-01 22:08 | PM.HPGS ---
History of Present Illness History of Present Illness Consent: Risks, benefits, and alternatives of placement of a Radha-cath for treatment of her melanoma have been discussed and questions answered. Patient agrees to proceed with procedure. Chief complaint: malignant melanoma of torso excluding breast Narrative: Eli Dykes is a 61 year old female Review of Systems Constitutional: Constitutional: Reports no additional constitutional complaints, Reports fatigue and Denies malaise Eyes: Eyes: Denies change in vision and Denies loss of vision ENT: Reports Normal hearing present, Denies change in voice, Denies dizziness, Denies hoarseness and Denies sore throat Cardiovascular: Cardiovascular: Denies chest pain, Denies leg edema and Denies dyspnea Comments: HTN and history of CAD Also Hyperlipidemia Respiratory: Respiratory: Denies cough, Denies dyspnea and Denies wheezing Comments: History of sleep apnea and uses CPAP at home Gastrointestinal: Gastrointestinal: Denies hematochezia, Denies change in bowel habits and Denies heartburn Genitourinary: Genitourinary: Denies urinary frequency and Denies urinary incontinence Integumentary/Breasts: Comments: History of a melanoma excised from her back. Neurologic: Reports Normal hearing present, Denies confusion, Denies dizziness, Denies loss of vision, Denies memory loss and Denies seizure-like activity Psychiatric: Psychiatric: Denies confusion, Denies depression and Denies memory loss Endocrine: Endocrine: Denies cold intolerance and Reports fatigue Comments: History of type II Diabetes. Hematologic/Lymphatic: Hematologic/Lymphatic: Denies easy bleeding and Denies easy bruising Allergic/Immunologic: Allergic/Immunologic: Denies wheezing PMFSH Past Medical History Medical History Abnormal fasting glucose Anemia Atherosclerosis of [place] coronary artery of [place] heart without angina pectoris Body mass index (BMI) 40.0-44.9, adult (12/28/18) CAD (coronary artery disease) Controlled diabetes mellitus (09/26/20) Essential (primary) hypertension Malignant melanoma (~09/26/20) Woody level greater than IV on right upper back Wide excision 5 cm 10/16/2020 Mixed hyperlipidemia Neoplasm of skin of back LION on CPAP Polyp of colon (01/15/21) small benign-appearing colon polyp on 01/15/2021. Recheck in 5 years. Primary osteoarthritis involving multiple joints Vitamin D deficiency, unspecified Family History Family History Mother Diabetes mellitus, Onset Age: 78 Family history of cardiovascular disease Acute myocardial infarction Father Diabetes mellitus Family history of cardiovascular disease Acute myocardial infarction Cerebrovascular accident Carcinoma of colon Malignant neoplasm of prostate Sibling Diabetes mellitus Grandparent Family history of malignant neoplasm of bone Family history of malignant neoplasm of breast Social History Social History Smoking status: Never smoker Alcohol intake: never Substance use: never Substance use type: does not use Gender identity (if verbalized by the patient): Female Spiritual care concerns: No Meds Home Medications and Allergies Home Medications Medication Instructions Recorded Confirmed Type aspirin 81 mg tablet,delayed 81 mg PO DAILY 07/19/19 10/02/21 History release cholecalciferol (vitamin D3) 25 1,000 unit PO DAILY 07/19/19 10/02/21 History mcg (1,000 unit) capsule efpjkcgftdmm-bzjktaje-zdiaoe tablet 1 tablet PO DAILY 07/19/19 10/02/21 History omega-3 fatty acids 1,000 mg 1,000 mg PO DAILY 07/19/19 10/02/21 History capsule ezetimibe 10 mg tablet 10 mg PO DAILY 10/05/19 10/02/21 History amlodipine 5 mg tablet 5 mg PO DAILY #90 tablet 01/31/21 10/02/21 Rx irbesartan 300 mg tablet 300 mg PO DAILY #90 tablet 01/31/2109/16
[2021-10-02] VITALS (8 sets, daily range): BP systolic 111–149; BP diastolic 72–87; PULSE 70–80; RESP 12–20; TEMP 36.1–36.7; O2SAT 98–100
--- NOTE | ~2021-10-02 | XR_ITS ---
EXAMINATION: XR fl guide central line place DATE: 10/02/2021 08:56 INDICATION: Port catheter insertion TECHNIQUE: Single fluoroscopic image of the central chest was obtained during procedure performed by Dr. Schwab. Radiologist was not present for the imaging or procedure. The amount of fluoroscopy time used during this procedure was 0.6 minutes. FINDINGS: Right internal jugular central venous port catheter with distal tip in the right atrium. Sm all lung volumes with streaky right perihilar atelectasis. No pneumothorax. IMPRESSION: 1. Right internal jugular central venous port catheter with distal tip in the right atrium. Reviewed, dictated and finalized at location A. Y CHILDHOOD EDUCATOR AIDE IMPRESSION: 1. Right internal jugular central venous port catheter with distal tip in the r ight atrium.
--- NOTE | ~2021-10-02 | XR_ITS ---
EXAMINATION: XR chest port-a-cath/central DATE: 10/02/2021 11:19 INDICATION: Status post port catheter insertion TECHNIQUE: frontal view of the chest was obtained. COMPARISON: Chest CT dated 11/06/2020 FINDINGS: Right internal jugular central venous port catheter with distal tip at the high right atrium. Bandlik e opacities in the left lower lung zone and favor discoid atelectasis over pneumonia. No airspace opa cities in the right hemithorax. No pulmonary edema, pleural effusion or pneumothorax. The cardiomedia stinal silhouette is normal. Surgical clips at the right axilla. There appears be some chest wall sof t tissue gas in the region of the reservoir for the port catheter. There appears to be some additiona l soft tissue gas at the lateral left chest wall. IMPRESSION: 1. Right internal jugular central venous port catheter tip in the high right atrium. 2. Bandlike discoid atelectasis in the left lower lung zone. Reviewed, dictated and finalized at location A. ENTATION SCIENTIST IMPRESSION: 1. Right internal jugular central venous port catheter tip in the high right at rium. 2. Bandlike discoid atelectasis in the left lower lung zone.
--- NOTE | 2021-10-02 06:36 | WPDANESEPPF ---
Anes - Initial Pre Proc Eval Procedure: Operation Date: 10/02/21 07:30 Proposed Procedures p Insertion Radha Cath Right Side - Flo Schwab MD s Excision Right and Left Axillary Lymph Node, - Parker Foster MD Date/Time: 10/02/21 06:36 Surgeon: Flo Schwab MD Pre Op Diagnosis: malignant melanoma of torso excluding breast Patient Data Age: 61 Gender: F Height: 1.65 m Weight: 110.22 kg Allergies Allergy/AdvReac Type Severity Reaction Status Date / Time No Known Allergies Allergy Verified 10/02/21 06:36 Home Medications Medication Instructions Recorded Confirmed Type aspirin 81 mg tablet,delayed 81 mg PO DAILY 07/19/19 10/01/21 History release cholecalciferol (vitamin D3) 25 1,000 unit PO DAILY 07/19/19 10/01/21 History mcg (1,000 unit) capsule vsmmrxixksyp-prpbnbax-nzglyw tablet 1 tablet PO DAILY 07/19/19 10/01/21 History omega-3 fatty acids 1,000 mg 1,000 mg PO DAILY 07/19/19 10/01/21 History capsule ezetimibe 10 mg tablet 10 mg PO DAILY 10/05/19 10/01/21 History amlodipine 5 mg tablet 5 mg PO DAILY #90 tablet 01/31/21 10/01/21 Rx irbesartan 300 mg tablet 300 mg PO DAILY #90 tablet 01/31/21 10/01/21 Rx Jardiance 10 mg tablet 10 mg PO DAILY #90 tablet NS 06/11/21 10/01/21 Rx atorvastatin 80 mg tablet 80 mg PO DAILY 06/11/21 10/01/21 History ferrous sulfate [Slow Release Iron] 140 mg PO WEEKLY 09/24/21 10/01/21 History Patient hx anesthesia problems: none Family hx anesthesia problems: none Results Review: All pre-operative results and documents have been reviewed as part of the pre-operative evaluation. [facility] Past Medical History Medical History Abnormal fasting glucose Anemia Atherosclerosis of [place] coronary artery of [place] heart without angina pectoris Body mass index (BMI) 40.0-44.9, adult (12/28/18) CAD (coronary artery disease) Controlled diabetes mellitus (09/26/20) Essential (primary) hypertension Malignant melanoma (~09/26/20) Woody level greater than IV on right upper back Wide excision 5 cm 10/16/2020 Mixed hyperlipidemia Neoplasm of skin of back LION on CPAP Polyp of colon (01/15/21) small benign-appearing colon polyp on 01/15/2021. Recheck in 5 years. Primary osteoarthritis involving multiple joints Vitamin D deficiency, unspecified Family History Family History Mother Diabetes mellitus, Onset Age: 78 Family history of cardiovascular disease Acute myocardial infarction Father Diabetes mellitus Family history of cardiovascular disease Acute myocardial infarction Cerebrovascular accident Carcinoma of colon Malignant neoplasm of prostate Sibling Diabetes mellitus Grandparent Family history of malignant neoplasm of bone Family history of malignant neoplasm of breast Social History Social History Smoking status: Never smoker Alcohol intake: never Substance use: never Substance use type: does not use Living arrangements: with family Gender identity (if verbalized by the patient): Female Spiritual care concerns: No Anes - Eval Final PreProcedure Day of Procedure 10/02/21 06:36 Patient weight: morbidly obese Heart: regular rate and rhythm Lungs: clear to auscultation Airway: Mallampati scale class III Neurological: alert and oriented Last oral intake: >/= 8 hours ASA classification: IV Emergent: no Anesthesia type and monitoring: general LMA and standard monitoring Results Review: All pre-operative results and documents have been reviewed as part of the pre-operative evaluation. Informed Consent: The patient's anesthetic plan and its attendant risks and benefits were discussed with the patient/family/POA. Questions were solicited and answers provided to the satisfaction of the patient/family/POA.
[2021-10-02] MEDS: LACTATED RINGERS 1,000 ML 30 ML IV CONT ×2 (06:45→10:57)
[2021-10-02] MEDS: KETOROLAC 15 MG/ML VIAL (*BKC) IV PUSH (06:54)
[2021-10-02 06:56] LABS: Glucose Point of Care 102 mg/dl (65-105)
--- NOTE | 2021-10-02 07:23 | WPDHPUPDATE1 ---
History and Physical Update Update Date/Time: 10/02/21 07:23 History and Physical has been reviewed, including an updated exam of the patient. There are NO changes in the patient's condition. Risks, benefits, and alternatives have been discussed and questions answered. Patient agrees to proceed with procedure.
--- NOTE | 2021-10-02 07:28 | WPDHPUPDATE1 ---
History and Physical Update Update Date/Time: 10/02/21 07:28 History and Physical has been reviewed, including an updated exam of the patient. There are NO changes in the patient's condition. Risks, benefits, and alternatives have been discussed and questions answered. Patient agrees to proceed with procedure.
[2021-10-02] MEDS: ceFAZolin 2 GM/D5W 50 ML 2 GM/50 ML BAG IVPB (07:38)
[2021-10-02] MEDS: BUPIVACAINE/EPINEPHRINE 0.5% 30 ML VIAL INFILTRATE (08:30)
--- NOTE | 2021-10-02 08:52 | W.PM.PROC2 ---
Procedure Note - Detailed Date of Procedure 10/07/21 Pre-op Diagnosis malignant melanoma of torso excluding breast Post-op Diagnosis same Procedure Performed Ultrasound guided Placement of Radha-cath Surgeon Flo Schwab MD Bank Accountant Melinda Culp RN. OR department assistant Anesthesia general and local (with 0.25% Marcaine with epinepherine) Indications There is suspicion of metastatic melanoma and chemotherapy is planned for this patient. Patient has poor peripheral vascular access. Therefore I was asked to place a port for good central venous access for the treatment. Findings Normal vascular anatomy in the right neck by ultrasound. Description of Procedure Patient was seen and marked in the pre-op area prior to coming to the OR. Patient was brought to the operating room. Patient was placed supine on the operating table and general IV sedation was induced. The nurse marine machinist provided oxygen and IV sedation. Patient's head was carefully turned to the left side while in the supine position and the patient's entire neck and anterior chest on both sides was prepped and draped in the usual sterile fashion. Following this the appropriate time-out was completed confirming procedure and patient. We confirmed that all the needed equipment was present in the room. Following this the ultrasound probe was draped into the field and using the probe we carefully identified the carotid artery and jugular vein on the right neck. We then took a picture of the vascular anatomy of the neck and transferred from the ultrasound to the Dealer[employer] chart. I marked the skin directly over the Rt. internal jugular vein. I then used an 11 blade knife to make a small tray in the skin. Following this, using the continuous ultrasound guidance, a Cook needle was placed through the skin incision and on into this vein. I then was able to draw back good dark blood. Once this was completed a guidewire using a J-tip was advanced through the needle and then the needle and the guidewire cover were withdrawn. C-arm fluoroscopy was used to confirm that the guidewire was nicely in the venous system. Once this was confirmed with the C - arm, I preceded on by making the pocket for the port on the patient's anterior right chest approximately 3 centimeters below the clavicle overlying the chest wall. Local anesthetic was infiltrated into the skin where there was a transverse incision marked out. Incision was made and we made a pocket inferior to the incision with just a little dissection superior. The Smart port was tried in the pocket and seemed to fit well. Following this the catheter which had been placed on a tunneling device was tunneled from the port site on the anterior right chest up to the right neck where the small incision had been made slightly larger with an #11 blade knife. Then the catheter was pulled through so that we would have 15 centimeters to put into the central venous system once the dilation took place. Following this we placed the dilator and sheath over the guidewire in the jugular vein and carefully dilated the tract into the central venous system. The guidewire and dilator were then removed, carefully covering the end of the sheath to prevent air embolus. The end of the catheter which had been removed from the tunneling device and the tip checked was then inserted into the sheath and into the neck. I then carefully pulled the 2 arms of the tear-away sheath away as the assistant boiler operator held the catheter in position with a DeBakey forceps. Following this we checked the position of the catheter with C-arm fluoroscopy confirming that the tip seemed to be in the distal superior vena cava near the junction with the right atrium. I felt that it was in good position and so the rest of the catheter was pulled down toward the feet into the port site. We then measured to the appropriate position to cut the catheter to attach it to the port stem. Then the connector sealing device for t
[2021-10-02] MEDS: HEPARIN SODIUM 5,000 UNITS/ML VIAL 5000 UNITS IRRIGATION (09:02)
[2021-10-02] MEDS: LIDO 1%/EPINEPHRINE 1:100,000 50 ML VIAL INFILTRATE (10:39)
[2021-10-02 11:06] LABS: Glucose Point of Care 132 mg/dl (65-105)
--- NOTE | 2021-10-02 11:19 | W.PM.PROC2 ---
Procedure Note - Detailed Date of Procedure 10/02/21 Pre-op Diagnosis malignant melanoma of torso excluding breast. Metastatic melanoma to the right axilla by biopsy.. Palpable left axillary mass. Post-op Diagnosis same Procedure Performed Excision of palpable right and left axillary lymph nodes Surgeon Parker Foster MD Competitive Intelligence Manager Amamda Anesthesia general Description of Procedure The bilateral axillae were marked with a pen in holding area. The patient had been taken to the operating room and placed under general anesthesia for the 1st part of the case which was performed by Dr. Flo Schwab. This was to place an infusion port in the right upper chest. At the termination of that portion of the case the chest was re-prepped to include the axillae and both arms were extended on separate hand board. A time-out was held a gun of this portion of the case which was resection of palpable axillary masses. The 1 on the right had previously been biopsied with ultrasound-guided needle technique and was noted to contain metastatic melanoma. The mass on the left side was smaller and had been confirmed on a PET scan after initially being palpated in the clinic. No radionuclide tracer was utilized for this case. The right axilla was approached 1st through an anterior axillary incision extended in length somewhat from the prior incision used at the time of the sentinel node procedure. Dissection was carried through the scar and subcutaneous tissue into the axillary fat pad. The mass was fairly easily identified. It lay just under the margin of the pectoralis major muscle and extended over 3 cm in length nearly reaching the axillary vein. The intercostal brachial nerve was identified during this dissection and preserved. A single 2 mm vein was doubly ligated and divided running cephalocaudal superficial to this. I carefully confirmed there was not accompanying artery or nerve. The long thoracic nerve was not identified and we did not search for. The large firm dark kidney shaped lymph node was removed with cautery primarily. What appeared to be a 2 mm lymphatic extending proximally from this node was divided between medium vessel clips. The area was carefully palpated for additional lymph nodes. The piece of tissue taken and sent fresh to pharmacy was left contiguous with prior subcutaneous scar and very likely a few lymph nodes, none of which appeared dark, large or firm. This wound was irrigated with about 100 cc of saline. There was no bleeding at that time. The wound was closed with 3-0 Monocryl suture to approximate the superficial fascia. The skin was closed with intradermal 4-0 Vicryl and glue. Attention was turned to the left side where the marking was again made.he site was carefully palpated and appeared that the mass lay directly under the existing scar. This appeared to be much smaller. The incision was made and dissection was carried through the subcutaneous fat to the axillary fat pad. This was opened and careful and frequent palpation let us to a smaller but firm and less dark lymph node . This lay in the anterior aspect of the axilla. It was taken out with cautery primarily. There was no notable efferent lymphatic to ligate. This wound was irrigated was saline. There was no bleeding. The wound was closed with 3-0 interrupted Monocryl suture in the superficial fascia. The skin was closed with intradermal 3-0 Monocryl and glue. The patient had been given 2 g of Ancef preop. She is being discharged home with prescription for hydrocodone 5/325 number 8 Drains No Packing No Pathology yes Complications No immediate complications Condition stable Disposition PACU
--- NOTE | 2021-10-02 11:19 | SUR.PHASEI ---
DR WHITE AT BEDSIDE CHECKING ON PT. PT RESTING QUIETLY. DENIES PAIN OR NAUSEA AT THIS TIME.
[2021-10-02] MEDS: fentaNYL CITRATE INJ (*CRX) 100 MCG/2 ML VIAL 25 MCG IV PUSH ×2 (11:38→11:51)
--- NOTE | 2021-10-02 11:53 | SUR.PHASEI ---
PT AWAKE AND ALERT. STATES UPPER CHEST INCISION SORE BUT TOLERABLE. READY TO SEE SPOUSE. PT TEARFUL.
== END 2021-10-02 13:10 | disposition home or self-care (01) ==
PROVIDERS: Plastic Surgery; PCP Family Medicine; Visit Provider Surgery
PROC: (CPT 36561; principal; 2021-10-02 07:30)
PROC: (CPT 38525; 2021-10-02 07:30)
DX: C43.59 Malignant melanoma of other part of trunk (principal); C77.3 Secondary and unspecified malignant neoplasm of axilla and upper limb lymph nodes; Z79.82 Long term (current) use of aspirin; D64.9 Anemia, unspecified; I25.10 Atherosclerotic heart disease of native coronary artery without angina pectoris; E11.9 Type 2 diabetes mellitus without complications; I10 Essential (primary) hypertension; M15.0 Primary generalized (osteo)arthritis; Z85.820 Personal history of malignant melanoma of skin; E78.5 Hyperlipidemia, unspecified; G47.33 Obstructive sleep apnea (adult) (pediatric); E55.9 Vitamin D deficiency, unspecified; E66.9 Obesity, unspecified; Z68.39 Body mass index [BMI] 39.0-39.9, adult; E78.2 Mixed hyperlipidemia
CPT/HCPCS: 38525; 36561; 76937; 77001; 82948; 88305; 88307; A9270; C1713; C1788; J0690; J1100; J1644; J1885; J2250; J2405; J2704; J3010; J7030; J7120

== ENCOUNTER 2022-01-20 08:38 | Outpatient (CLI) | payer BC, SELFPAY ==
--- NOTE | ~2022-01-20 | CT_ITS ---
EXAMINATION: CT diagnostic chest wo con DATE: 01/20/2022 09:00 INDICATION: Malignant melanoma of torso TECHNIQUE: Computed tomography (CT) of the chest was performed without intravenous contrast. Automate d exposure control and iterative reconstruction technique were employed. Exam dose: 434.62 mGy-cm to beronica exam DLP. COMPARISON: 10/02/2021 portable AP chest To PET/CT scan 11/02/2020 CT chest FINDINGS: Right internal jugular Port-A-Cath catheter tip at upper right atrium. Heart size is within normal range. Coronary artery and aortic calcifications. No thoracic aortic aneu rysm. No pericardial effusion. There are stable subcentimeter prevascular and aortopulmonary window lymph nodes since 11/02/2020. No hilar mass lesion or lymphadenopathy. Approximately 1.5 x 2 cm soft tissue density in the right axilla is noted in addition to approximatel y 1.4 x 2 cm irregular spiculated density at the lateral margin of the right pectoralis major muscle. Residual or recurrent right axillary metastatic disease should be considered. Consider PET/CT imagin g. There is some irregular linear stranding in the left axillary region which may be due to scarring; mi ld residual tumor is not excluded. No pulmonary infiltrate or consolidation or pulmonary mass lesion is evident. There is limited visualization of the kidneys with at least 2 left upper pole renal calculi are noted , the larger measuring up to 4.2 x 7 mm. Normal morphology of the adrenal glands. Normal splenic size. Diffuse idiopathic skeletal hyperostosis of the thoracic spine. IMPRESSION: Right axillary soft tissue masses which may represent recurrent or new metastatic diseas e. Left axillary linear soft tissue stranding Comment which may represent scarring or less likely residual or recurrent metastatic disease PET/CT imaging is recommended Right Port-A-Cath catheter Reviewed, dictated and finalized at [facility]. Reviewed, dictated and finalized at [facility]. IMPRESSION: Right axillary soft tissue masses which may represent recurrent or new metastatic disease. Left axillary linear soft tissue stranding Comment which may represent scarring or less likely residual or recurrent metas tatic disease PET/CT imaging is recommended Right Port-A-Cath catheter
== END 2022-01-20 08:39 | disposition home or self-care (01) ==
PROVIDERS: PCP Family Medicine; Visit Provider Internal Medicine Hematology & Oncology
DX: C43.59 Malignant melanoma of other part of trunk (principal)
CPT/HCPCS: 71250

== ENCOUNTER 2022-02-26 10:23 | Outpatient (CLI) | payer BC, SELFPAY ==
--- NOTE | ~2022-02-26 | PE_ITS ---
EXAMINATION: PET skull to mid thigh DATE: 02/26/2022 13:54 INDICATION: Metastatic melanoma TECHNIQUE: Blood glucose level was 109 mg/dL. 11.43 mCi of 18-fluorodeoxyglucose (18-FDG) was adminis tered i.v. Low dose computed tomography (CT) images were acquired from the base of the brain to the p roximal thighs for attenuation correction and anatomic localization. Positron emission tomography (PE T) images were acquired in the same distribution beginning 61 minutes after injection. Images includi ng fused PET/CT images were reconstructed in axial, coronal, and sagittal planes. Automated exposure control technique was employed. The dose-length product was 1189.00mGy-cm. COMPARISON: 09/25/2021 FINDINGS: Head/neck: There is symmetric increased activity in the nasal and oral cavities, laryngeal muscles and ocular mu scles without CT correlate, likely physiologic. No pathologically enlarged cervical lymphadenopathy o r suspicious foci of increased FDG uptake in the visualized head or neck. Chest: Lungs are clear with no suspicious pulmonary nodules, pneumonia, pulmonary edema or pleural effusion. Heart size is normal. Atherosclerotic coronary artery calcific location. No pericardial effusion. Ri ght internal jugular central venous port catheter tip extends into the inferior right atrium. Interva l postoperative changes at the right axilla with new approximately 1.9 x 1.3 x 3.1 cm spiculated nodu le along the lateral margin of the right pectoralis major muscle at the site of a couple prior surgic al clips with minimal FDG activity with maximal SUV of 1.7. Slightly posterior to this spiculated nod ule is a 1.8 x 1.4 cm ovoid nodule with more sharply defined smooth margins likely representing a rig ht axillary lymph node near the location of the prior 4.3 x 3.4 cm FDG avid mass seen on the prior st udy. This also demonstrates only minimal FDG activity with maximal SUV of 1.5. Is unclear whether thi s represents the same lymph node or more likely a new lymph node as there are 3 new surgical clips al brandi side the nodule suggesting resection of the prior mass. Correlate with surgical history. No other pathologically enlarged for abnormal FDG avid thoracic lymphadenopathy. Abdomen/pelvis/proximal thighs: Physiologic renal accumulation and excretion of FDG activity in the kidneys, bladder and along portio ns of ureters. Bilateral nonobstructing nephrolithiasis the largest measuring 4 mm at the lower pole of the right kidney with a couple smaller stones at upper pole calyces of the left kidney. Normal deg ree and heterogenous pattern of increased uptake throughout the liver without radiologic correlate or dominant FDG avid lesion. The gallbladder, pancreas, spleen and bilateral adrenal glands are normal. Mild uptake scattered throughout the bowels without radiologic correlate, also likely physiologic. D iverticulum along the sigmoid colon without adjacent inflammatory change to suggest diverticulitis. T he uterus is not identified and has likely been surgically resected. No other abnormal foci of increa sed FDG uptake or pathologically enlarged lymphadenopathy in the abdomen, pelvis or proximal thighs. 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 Unchanged L5 hemangioma. No suspicious lytic, blastic or FDG avid bone lesions. IMPRESSION: 1. A couple nodules without significant FDG activity at the right axilla, one with spiculated margins measuring 3.1 x 1.9 x 1.3 cm along the lateral margin of the right pectoralis major muscle at the si te of prior surgical clips which may represent residual postoperative scarring comment the second gabe suring 1.8 x 1.4 cm with margins likely representing a lymph node. The latter along with 3 surgical c lips are located at the site of a prior 4.3 x 3.4 cm markedly FDG avid right axillary mass suggesting interval resection of the mass and development of a new nodule which i
[2022-02-26 10:44] LABS: Glucose Point of Care 109 mg/dl (65-105)
== END 2022-02-26 10:24 | disposition home or self-care (01) ==
LOC: ANHIMG 10:24
PROVIDERS: PCP Family Medicine; Visit Provider Internal Medicine Hematology & Oncology
DX: C43.59 Malignant melanoma of other part of trunk (principal)
CPT/HCPCS: 78815; 99283; A9552

== ENCOUNTER 2022-03-26 12:06 | Outpatient (CLI) | payer BC, SELFPAY ==
--- NOTE | ~2022-03-26 | US_ITS ---
EXAMINATION: US biopsy lymph node DATE: 03/26/2022 13:27 INDICATION: Right axillary lymphadenopathy. TECHNIQUE: The procedure including the risks, benefits, and alternatives was discussed with the patie nt. Risks discussed included bleeding and infection. The patient understood the risks and agreed to p roceed. The skin overlying the right axilla was prepped and draped in usual sterile fashion. Anesthe tic was administered with 1% lidocaine subcutaneously. An 18 gauge core biopsy needle was then used to obtain 4 core biopsy specimens under continuous sonographic guidance. The entry site was cleaned a nd dressed. There were no immediate complications. FINDINGS: Ultrasound images demonstrate the needle in a 1.6 x 1.5 x 1.1 cm right axillary mass. IMPRESSION: 1. Ultrasound-guided core needle biopsy of a right axillary mass. Reviewed, dictated and finalized at [facility].
== END 2022-03-26 12:07 | disposition home or self-care (01) ==
PROVIDERS: PCP Family Medicine; Visit Provider Radiology Radiation Oncology
DX: C43.9 Malignant melanoma of skin, unspecified (principal)
CPT/HCPCS: 38505; 76942; 88305

== ENCOUNTER 2022-05-29 08:37 | Outpatient (CLI) | payer BC, SELFPAY ==
--- NOTE | ~2022-05-29 | CT_ITS ---
EXAMINATION: CT diagnostic chest w con DATE: 05/29/2022 09:19 INDICATION: Malignant melanoma of the torso TECHNIQUE: Transaxial computed tomographic images of the chest were obtained after the administration of 75 cc of Omnipaque 350 intravenous contrast. The dose-length product (DLP) was 422.06 mGy-cm. Ite rative reconstruction was used. COMPARISON: 01/20/2022 FINDINGS: There is a stable 1.4 cm area of fluid attenuation in the right axilla with adjacent surgic al clips. A spiculated area of soft tissue density along the lateral margin of the right pectoralis m ajor muscle is slightly decreased in size. There is stable linear soft tissue density in the left axi lla. No pathologically enlarged thoracic lymph nodes are identified. A right internal jugular Port-A- Cath ends with the tip of the distal superior vena cava. The heart size is normal. The lungs are free of acute opacities. No pleural effusion or pneumothorax. There is moderate thoracic spondylosis. IMPRESSION: 1. Decreasing area of fluid attenuation in the right axilla, decreasing soft tissue density along the anterolateral margin of the right pectoralis major muscle, and stable linear soft tissue density of the left axilla. No new suspicious findings identified. Reviewed, dictated and finalized at [facility]. IMPRESSION: 1. Decreasing area of fluid attenuation in the right axilla, decreasing soft ti ssue density along the anterolateral margin of the right pectoralis major muscl e, and stable linear soft tissue density of the left axilla. No new suspicious findings identified.
== END 2022-05-29 08:38 | disposition home or self-care (01) ==
PROVIDERS: PCP Family Medicine; Visit Provider Internal Medicine Hematology & Oncology
DX: C43.59 Malignant melanoma of other part of trunk (principal)
CPT/HCPCS: 71260; Q9967

== ENCOUNTER 2022-10-14 08:23 | Outpatient (CLI) | payer BC, SELFPAY ==
--- NOTE | ~2022-10-14 | CT_ITS ---
Clinical Indication: Malignant melanoma CT Scan of the Chest with Contrast: Technique: Contiguous sections were acquired throughout the chest after intravenous administration of 75 cc of Omnipaque 350. Dose reduction technique was used on this scan by utilizing automated exposu re control and iterative reconstruction technique. The dose-length product (DLP) was 376.86 mGy-cm. COMPARISON: 05/29/2022 Findings: There is no evidence of any significant mediastinal, hilar or axillary lymphadenopathy. There is no f illing defect in the pulmonary arterial tree to suggest pulmonary embolus. There is no evidence of ao rtic dissection or aneurysm. There are mild atherosclerotic calcific changes of the coronary arteries and aorta. There is no evidence of pleural or pericardial effusion. The lungs are clear. No pulmonary nodules or infiltrates are noted. Images through the upper abdomen reveal no abnormalities. Impression: No significant abnormality identified. Reviewed, dictated and finalized at [facility]. ICITY AGENT Impression: No significant abnormality identified.
== END 2022-10-14 08:24 | disposition home or self-care (01) ==
PROVIDERS: PCP Family Medicine; Visit Provider Internal Medicine Hematology & Oncology
DX: C43.59 Malignant melanoma of other part of trunk (principal)
CPT/HCPCS: 71260; Q9967

== ENCOUNTER 2023-01-12 08:41 | Outpatient (CLI) | payer BC, SELFPAY ==
--- NOTE | ~2023-01-12 | CT_ITS ---
Clinical Indication: Malignant melanoma of the torso CT Scan of the Chest with Contrast: Technique: Contiguous sections were acquired throughout the chest after intravenous administration of 75 cc of Omnipaque 350. Dose reduction technique was used on this scan by utilizing automated exposu re control and iterative reconstruction technique. The dose-length product (DLP) was 593.11 mGy-cm. COMPARISON: 10/14/2022 Findings: There is no evidence of any significant mediastinal, hilar or axillary lymphadenopathy. Coronary jadon ry calcifications are present. Mediastinal soft tissues and vascular structures are otherwise unremar kable. There is no evidence of pleural or pericardial effusion. The lungs are clear. No pulmonary nodules or infiltrates are noted. Images through the upper abdomen reveal nonobstructing left renal stones. Impression: No evidence for active malignancy or metastatic disease in the thorax. Left nephrolithiasis. Reviewed, dictated and finalized at [facility]. Impression: No evidence for active malignancy or metastatic disease in the thorax. Left nephrolithiasis.
== END 2023-01-12 08:42 | disposition home or self-care (01) ==
PROVIDERS: PCP Family Medicine; Visit Provider Internal Medicine Hematology & Oncology
DX: C43.59 Malignant melanoma of other part of trunk (principal); N20.0 Calculus of kidney
CPT/HCPCS: 71260; Q9967

== ENCOUNTER 2023-06-08 08:40 | Outpatient (CLI) | payer BC, SELFPAY ==
--- NOTE | ~2023-06-08 | CT_ITS ---
Clinical Indication: Malignant melanoma CT Scan of the Chest with Contrast: Technique: Contiguous sections were acquired throughout the chest after intravenous administration of 75 cc of Omnipaque 350. Dose reduction technique was used on this scan by utilizing automated exposu re control and iterative reconstruction technique. The dose-length product (DLP) was 351.62 mGy-cm. COMPARISON: 01/12/2023 Findings: There is no evidence of any significant mediastinal, hilar or axillary lymphadenopathy. No large cent ral pulmonary embolus evident. There is no evidence of aortic dissection or aneurysm. There is no evidence of pleural or pericardial effusion. The lungs are clear. No pulmonary nodules or infiltrates are noted. Images through the upper abdomen reveal no abnormalities. There is DISH of the thoracic spine. Impression: No evidence for active malignancy or metastatic disease. Clear lungs. Reviewed, dictated and finalized at [facility]. Impression: No evidence for active malignancy or metastatic disease. Clear lungs.
[2023-06-08 09:00] LABS: Estimated Glomerular Filt Rate > 60
== END 2023-06-08 08:41 | disposition home or self-care (01) ==
LOC: ANHIMG 08:44
PROVIDERS: PCP Family Medicine; Visit Provider Internal Medicine Hematology & Oncology
DX: C43.59 Malignant melanoma of other part of trunk (principal)
CPT/HCPCS: 71260; Q9967

== ENCOUNTER 2023-09-08 07:49 | Outpatient (CLI) | payer BC, SELFPAY ==
[2023-09-08 08:46] LABS: Anion Gap 6 mmol/L (8-16); Blood Urea Nitrogen 11 mg/dL (7-17); Carbon Dioxide 29 mmol/L (22-30); Chloride 106 mmol/L (98-107); Estimated Glomerular Filt Rate > 60; Glucose 111 mg/dL (65-110); Potassium 4.4 mmol/L (3.4-5.0); Sodium 141 mmol/L (137-145)
== END 2023-09-08 07:50 | disposition home or self-care (01) ==
PROVIDERS: Anesthesiology; PCP Family Medicine; Visit Provider Surgery
DX: E11.9 Type 2 diabetes mellitus without complications (principal); Z01.818 Encounter for other preprocedural examination
CPT/HCPCS: 36415; 80048

== ENCOUNTER 2023-09-10 00:11 | Day surgery (SDC) | payer BC, SELFPAY ==
[2023-09-02 08:10] VITALS: BMI 39.2
--- NOTE | 2023-09-02 08:14 | PC.NURSE ---
Report to the Outpatient Waiting Room, entrance under the green pavilion located off [facility], at time _1000_ on date _[id number]_. Planned Procedure Time: _1200_. Time changes happen often and if your time is changed the preop area will call you the afternoon before. - You and your visitor will be asked to self-screen and do not enter if you have any COVID symptoms. - A mask is optional within the hospital at this time. Patients may have clear liquids (water, carbonated beverages, clear teas, apple juice) until 3 hours prior to surgery with a maximum of 20 ounces. - No food from midnight until time of surgery Take the following medications with a SIP of water the morning of surgery: __Amlodipine DO NOT STOP ANY OF YOUR OTHER PRESCRIPTION MEDICATIONS PRIOR TO SURGERY ?EXCEPT THE FOLLOWING Medications to discontinue per physician Vitamins and [place] 3 Date to take last xbip__[id number] Please no make-up, nail czech, hairspray, perfume, deodorant, or body powder the day of surgery. No jewelry (including any body piercings) or valuables the day of surgery, leave them at home. Please take a shower or bath the night before, or the morning of, surgery with an antibacterial soap. Wear comfortable, loose fitting clothing. - Jewelry must be removed prior to entering the operating room. Rings and piercings that are not removed may be cut off. - The hospital will not accept responsibility for valuables. - Please leave all valuables, including medications, at home the day of surgery. If you are going home after surgery, a licensed ready mix truck driver must drive you home. - NO public transportation without another adult if you receive anesthesia. - We recommend that an adult stay with you for 24 hours following discharge. - We also recommend that you do not drive, make important decision, drink alcoholic beverages, or take any drugs that were not prescribed by your health care provider for at least 24 hours after your discharge time. Follow any additional instructions given to you from your surgeon. If you or anyone in your household have experienced Covid symptoms in the past week, please notify your surgeon or the nurse liaison at the phone number below for possible testing. Telephone instructions given to ___Nancy and asked if any additional questions and then verbalized understanding. Patient advised to call surgeon office or pre surgery nurse liaison [phone] if any additional questions.
[2023-09-10 10:03] VITALS: BP 133/77; PULSE 84; RESP 16; TEMP 36.7; O2SAT 100
--- NOTE | 2023-09-10 11:19 | WPDANESEPPF ---
Anes - Initial Pre Proc Eval Procedure: Operation Date: 09/10/23 12:00 Proposed Procedures p Removal Radha Cath - Darrell Burnett DO Date/Time: 09/10/23 11:19 Surgeon: Darrell Burnett DO Pre Op Diagnosis: Malig Melanoma of Torso Excluding Breasts Patient Data Age: 63 Gender: F Height: 1.65 m Weight: 107.2 kg Last Vital Signs Temp 36.7 C 09/10/23 10:03 Pulse 84 09/10/23 10:03 Resp 16 09/10/23 10:03 BP 133/77 09/10/23 10:03 Pulse Ox 100 09/10/23 10:03 O2 Del Method Room Air 09/10/23 10:03 Allergies Allergy/AdvReac Type Severity Reaction Status Date / Time No Known Allergies Allergy Verified 09/10/23 09:56 Home Medications Medication Instructions Recorded Confirmed Type aspirin 81 mg tablet,delayed 81 mg PO DAILY 07/19/19 09/02/23 History release (Adult Low Dose Aspirin) cholecalciferol (vitamin D3) 25 1,000 unit PO DAILY 07/19/19 09/02/23 History mcg (1,000 unit) capsule ajgkblepmbkz-cmdxkmva-ndirjn 1 tablet PO DAILY 07/19/19 09/02/23 History tablet (Multivitamin 50 Plus tablet) omega-3 fatty acids 1,000 mg 1,000 mg PO DAILY 07/19/19 09/02/23 History capsule (Fish Oil Concentrate) ezetimibe 10 mg tablet (Zetia) 10 mg PO DAILY 10/05/19 09/02/23 History atorvastatin 80 mg tablet 80 mg PO DAILY 06/11/21 09/02/23 History ferrous sulfate 140 mg (45 mg 140 mg PO WEEKLY 09/24/21 09/02/23 History iron) tablet,extended release (Slow Release Iron) blood-glucose meter #1 ea 11/12/21 09/02/23 Rx lancets (Accu-Chek Softclix #100 ea 11/12/21 09/02/23 Rx Lancets) Jardiance 10 mg tablet 10 mg PO DAILY #90 tabs 06/18/22 09/02/23 Rx (empagliflozin) amlodipine 5 mg tablet 5 mg PO DAILY #90 tabs 04/22/23 09/02/23 Rx irbesartan 300 mg tablet 300 mg PO DAILY #90 tabs 04/22/23 09/02/23 Rx blood sugar diagnostic (Blood #50 ea 05/25/23 09/02/23 Rx Glucose Test strips) hydrocortisone 2.5 % topical cream 1 applic RECTAL DAILY PRN 07/16/23 09/02/23 Rx with perineal applicator hemorrhoids #30 grams (Anusol-HC) Patient hx anesthesia problems: none Family hx anesthesia problems: none Results Review: All pre-operative results and documents have been reviewed as part of the pre-operative evaluation. [facility] Past Medical History Medical History Abnormal fasting glucose Anemia hemoglobin 14.3 on 10/21/2022. Atherosclerosis of [place] coronary artery of [place] heart without angina pectoris (~2020) moderate irregularity LAD on CT angiogram stress PET scan with mild abnormality followed by Dr. Ron Morales. Echo on 08/19/2023 with trace aortic regurgitation and ejection fraction 57%. BMI 39.0-39.9,adult Breast cancer screening by mammogram normal mammogram 01/07/2022. Normal mammogram 01/27/2023. Controlled diabetes mellitus (09/26/20) Fasting glucose 109 with hemoglobin A1c 6.1 06/11/2023. Fasting glucose 99 with hemoglobin A1c 6.1 on 12/15/2022 with urine microalbumin ratio of 22. Elevated TSH (10/21/22) TSH elevated at 5.990 on 10/21/2022. TSH 2.74, free T4 1.15, T3 total was 150 on 12/22/2022. Essential (primary) hypertension Malignant melanoma (~09/26/20) Woody level greater than IV on right upper back Wide excision 5 cm 10/16/2020. CT of the chest was negative on 06/08/2023. Melanoma No metastatic disease or recurrence on CT 06/08/2023. Mixed hyperlipidemia Treated by envelope cutter Morbid obesity with BMI of 40.0-44.9, adult Neoplasm of skin of back Obesity (BMI 30-39.9) LION on CPAP Failed CPAP . Elevation head of bed. Polyp of colon (01/15/21) small benign-appearing colon polyp on 01/15/2021. Recheck in 5 years. Primary osteoarthritis involving multiple joints Reactive depression (situational) (~10/2021) Rhinitis (~12/2022) Screening for diabetic retinopathy no diabetic retinopathy on 03/09/2023. Seasonal allergic rhinitis Skin tags, anus or rectum Vitamin D deficiency, unspe
--- NOTE | 2023-09-10 11:25 | PM.IMHP ---
H&P: HPI History of Present Illness Date/Time: 09/10/23 11:25 Chief Complaint: malignant melanoma Narrative: 63 yo woman presents for removal of portacath. She has hx of melanoma and has completed immunotherapy. She is now in need of port removal. Review of Systems Review of Systems: All systems reviewed & are unremarkable except as noted in HPI and below Constitutional: Constitutional: Denies chills, Denies fever(s), Denies headache(s) and Denies weight loss Eyes: Eyes: Denies change in vision ENT: Denies dizziness, Denies headache(s), Denies neck mass and Denies throat swelling Cardiovascular: Cardiovascular: Denies chest pain, Denies lightheadedness and Denies dyspnea Respiratory: Respiratory: Denies cough, Denies dyspnea and Denies wheezing Gastrointestinal: Gastrointestinal: Denies abdominal pain, Denies change in bowel habits, Denies nausea and Denies vomiting Genitourinary: Genitourinary: Denies hematuria and Denies dysuria Musculoskeletal: Musculoskeletal: Reports as per HPI Integumentary/Breasts: Skin/Breast: Reports as per HPI Neurologic: Denies dizziness and Denies headache(s) Allergic/Immunologic: Allergic/Immunologic: Denies throat swelling and Denies wheezing [facility] Past Medical History Medical History Abnormal fasting glucose Anemia hemoglobin 14.3 on 10/21/2022. Atherosclerosis of [place] coronary artery of [place] heart without angina pectoris (~2020) moderate irregularity LAD on CT angiogram stress PET scan with mild abnormality followed by Dr. Ron Morales. Echo on 08/19/2023 with trace aortic regurgitation and ejection fraction 57%. BMI 39.0-39.9,adult Breast cancer screening by mammogram normal mammogram 01/07/2022. Normal mammogram 01/27/2023. Controlled diabetes mellitus (09/26/20) Fasting glucose 109 with hemoglobin A1c 6.1 06/11/2023. Fasting glucose 99 with hemoglobin A1c 6.1 on 12/15/2022 with urine microalbumin ratio of 22. Elevated TSH (10/21/22) TSH elevated at 5.990 on 10/21/2022. TSH 2.74, free T4 1.15, T3 total was 150 on 12/22/2022. Essential (primary) hypertension Malignant melanoma (~09/26/20) Woody level greater than IV on right upper back Wide excision 5 cm 10/16/2020. CT of the chest was negative on 06/08/2023. Melanoma No metastatic disease or recurrence on CT 06/08/2023. Mixed hyperlipidemia Treated by public relations senior associate Morbid obesity with BMI of 40.0-44.9, adult Neoplasm of skin of back Obesity (BMI 30-39.9) LION on CPAP Failed CPAP . Elevation head of bed. Polyp of colon (01/15/21) small benign-appearing colon polyp on 01/15/2021. Recheck in 5 years. Primary osteoarthritis involving multiple joints Reactive depression (situational) (~10/2021) Rhinitis (~12/2022) Screening for diabetic retinopathy no diabetic retinopathy on 03/09/2023. Seasonal allergic rhinitis Skin tags, anus or rectum Vitamin D deficiency, unspecified Surgical History Surgical History History of hysterectomy History of kidney surgery Family History Family History Mother Diabetes mellitus, Onset Age: 78 Family history of cardiovascular disease Acute myocardial infarction Father Diabetes mellitus Family history of cardiovascular disease Acute myocardial infarction Cerebrovascular accident Carcinoma of colon Malignant neoplasm of prostate Sibling Diabetes mellitus Grandparent Family history of malignant neoplasm of bone Family history of malignant neoplasm of breast Other Heart disease Hypertension Social History Social History Smoking status: Never smoker Alcohol intake: never Substance use: never Substance use type: does not use Lack of Transportation: No Lack of Food: Never True Current Housing: I Have Housing Concerned A
--- NOTE | 2023-09-10 11:27 | WPDHPUPDATE1 ---
History and Physical Update Update Date/Time: 09/10/23 11:27 History and Physical has been reviewed, including an updated exam of the patient. There are NO changes in the patient's condition. Risks, benefits, and alternatives have been discussed and questions answered. Patient agrees to proceed with procedure.
[2023-09-10 11:53] LABS: Glucose Point of Care 82 mg/dl (65-105)
[2023-09-10] MEDS: ceFAZolin 2 GM/D5W 50 ML 2 GM/50 ML BAG IVPB (11:54)
[2023-09-10] MEDS: LIDO 1%/EPINEPHRINE 1:100,000 50 ML VIAL 10 ML INFILTRATE (12:12)
--- NOTE | 2023-09-10 12:22 | W.PM.PROC2 ---
Procedure Note - Detailed Date of Procedure 09/10/23 Pre-op Diagnosis Malignant Melanoma of Torso Post-op Diagnosis Same Procedure Performed Removal of tunneled Port-A-Cath Surgeon Darrell Burnett, DO Anesthesia MAC and Local (1% lidocaine with epinephrine) Indications This is a 63-year-old woman who presents for port removal. She has a history of malignant melanoma and port was placed 2 years ago for immunotherapy. She has completed treatment and follow-up with Oncology has shown no signs of relapse. She now is in need of her Port-A-Cath to be removed. Findings Port-A-Cath removal was performed. The patient's port was identified on the right anterior chest and the tubing was tunneling underneath the skin up to the right internal jugular vein. The port was removed and the catheter tip was intact. No other significant abnormalities were noted. Description of Procedure Procedure as well as risks, benefits, and alternatives were discussed with the patient. Written consent was obtained and placed in chart prior to procedure. Patient was brought back to surgical suite. She was placed supine on operating table. Time-out was done to confirm patient and procedure. IV sedation was then administered by the anesthesia department. Her right neck and chest area was prepped and draped in sterile fashion using chlorhexidine prep. 1% lidocaine with epinephrine was infiltrated locally around the port the right anterior chest. A 4 cm transverse incision was made using a 15 blade scalpel directly over the port. Electrocautery was then used for hemostasis and for dissection through the subcutaneous tissue. The capsule around the port was incised with electrocautery and the port was gently grasped and manipulated anteriorly. There were 2 sutures identified holding the port in place and these were cut and removed. This freed up the port and tubing completely. A 3-0 Vicryl nbqxsq-su-lrrgs suture was then placed in the tract for the catheter tubing and the catheter tubing was gently withdrawn into the was completely removed. Pressure was held at the base of the right neck to allow the IJ insertion site to clot off. The 3-0 Vicryl vurbze-dl-intzp suture was then tied down in place. The cavity was then inspected and hemostasis appeared adequate. Roldan's fascia was then reapproximated using 3-0 Vicryl simple interrupted sutures. The skin was then approximated using 4-0 Monocryl running subcuticular suture. Exofin glue was then applied on top. The patient was then awakened from anesthesia and transferred to recovery. Estimated Blood Loss 2 Complications No immediate complications Condition Stable Disposition Same day [facility] Billing Surgery - Charge Forward: Surgery Billing
[2023-09-10 12:30] VITALS: BP 120/57; PULSE 98; RESP 18; O2SAT 99
[2023-09-10] MEDS: LACTATED RINGERS 1,000 ML 30 ML IV CONT (12:30)
[2023-09-10 12:47] LABS: Glucose Point of Care 104 mg/dl (65-105)
[2023-09-10 13:00] VITALS: BP 123/60; PULSE 76; RESP 16; O2SAT 98
[2023-09-10 13:25] VITALS: BP 120/64; PULSE 72; RESP 16
== END 2023-09-10 13:37 | disposition home or self-care (01) ==
PROVIDERS: PCP Family Medicine; Visit Provider Surgery
PROC: (CPT 36589; principal; 2023-09-10 12:00)
DX: Z45.2 Encounter for adjustment and management of vascular access device (principal); Z85.820 Personal history of malignant melanoma of skin; D64.9 Anemia, unspecified; I25.10 Atherosclerotic heart disease of native coronary artery without angina pectoris; E11.9 Type 2 diabetes mellitus without complications; I10 Essential (primary) hypertension; E78.2 Mixed hyperlipidemia; G47.33 Obstructive sleep apnea (adult) (pediatric); E55.9 Vitamin D deficiency, unspecified; E66.9 Obesity, unspecified; Z68.39 Body mass index [BMI] 39.0-39.9, adult; Z79.84 Long term (current) use of oral hypoglycemic drugs; Z79.82 Long term (current) use of aspirin
CPT/HCPCS: 36590; 82948; J0690; J2250; J2704; J3010; J7120

== ENCOUNTER 2023-10-19 08:12 | Outpatient (CLI) | payer BC, SELFPAY ==
--- NOTE | ~2023-10-19 | CT_ITS ---
EXAMINATION:CT diagnostic chest w con DATE: 10/19/2023 08:45 INDICATION: Malignant melanoma of torso excluding breast. TECHNIQUE: Computed tomography (CT) of the chest was performed with 75 mL Omnipaque 350 intravenous c ontrast. Automated exposure control and iterative reconstruction technique were employed. The dose-le ngth product (DLP) was 372.52 mGy-cm. COMPARISON: Chest CT 06/08/2023 FINDINGS: The lungs demonstrate mild atelectasis. No pleural effusion. The heart size is normal. No p ericardial effusion. There are no pathologically enlarged lymph nodes. There are surgical clips in ri ght axilla. Again seen is subcutaneous scarring in the right posterior thorax. There is mild chronic anterior wedging of multiple vertebral bodies. There is mild thoracic spondylosis. IMPRESSION: 1. No evidence of metastatic disease. Reviewed, dictated and finalized at location E. NG HOST
[2023-10-19 08:39] LABS: Estimated Glomerular Filt Rate > 60
== END 2023-10-19 08:13 | disposition home or self-care (01) ==
PROVIDERS: PCP Family Medicine; Visit Provider Internal Medicine Hematology & Oncology
DX: C43.59 Malignant melanoma of other part of trunk (principal)
CPT/HCPCS: 36415; 71260; 80053; 85025; Q9967

== ENCOUNTER 2023-10-19 08:55 | Outpatient (CLI) | payer BC, SELFPAY ==
[2023-10-19 09:07] LABS: Basophils Absolute Auto 0.1 K/mm3 (0.0-0.1); Basophils Percent Auto 0.7 % (0.2-1.2); Eosinophils Absolute Auto 0.3 K/mm3 (0-0.3); Hemoglobin 14.1 g/dL (12.0-15.0); Immature Granulocyte Absolute 0.03 K/mm3 (0.00-0.031); Immature Granulocyte Percent A 0.4 % (0-0.5); Lymphocytes Absolute Auto 2.21 K/mm3 (0.9-3.2); Lymphocytes Percent Auto 26.1 % (18.3-44.2); Mean Corpuscular HGB Conc 33.6 g/dl (32-36); Mean Corpuscular Hemoglobin 31.6 pg (26-34); Mean Corpuscular Volume 94.2 fl (80-100); Mean Platelet Volume 8.4 fl (7.4-10.4); Monocytes Absolute Auto 0.6 K/mm3 (0.1-0.6); Monocytes Percent Auto 7.2 % (2.6-8.5); Neutrophils Absolute Auto 5.2 K/mm3 (1.3-6.7); Neutrophils Percent Auto 61.6 % (45.5-73.1); Platelet Count Result 248 k/mm3 (150-375); Red Blood Count 4.46 M/mm3 (4.2-5.4); Red Cell Distribution Width 12.8 % (11.5-14.5); White Blood Count 8.5 K/mm3 (4.5-10.0)
[2023-10-19 10:31] LABS: Alanine Aminotransferase 21 U/L (6-35); Alkaline Phosphatase 67 U/L (38-126); Anion Gap 7 mmol/L (8-16); Aspartate Amino Transferase 25 U/L (14-36); Bilirubin,Total 0.8 mg/dL (0.2-1.3); Blood Urea Nitrogen 13 mg/dL (7-17); Calcium 8.9 mg/dL (8.4-10.2); Carbon Dioxide 27 mmol/L (22-30); Chloride 105 mmol/L (98-107); Estimated Glomerular Filt Rate > 60; Glucose 107 mg/dL (65-110); Potassium 4.1 mmol/L (3.4-5.0); Sodium 139 mmol/L (137-145)
== END 2023-10-19 08:56 | disposition home or self-care (01) ==
LOC: ANHLAB 08:56
PROVIDERS: PCP Family Medicine; Visit Provider Internal Medicine Hematology & Oncology
DX: C43.59 Malignant melanoma of other part of trunk (principal)
CPT/HCPCS: 36415; 80053; 85025

== ENCOUNTER 2023-12-17 15:21 | Emergency (ER) | payer BC, SELFPAY ==
[2023-12-17 15:31] VITALS: BP 149/91; PULSE 83; RESP 16; TEMP 37.4; O2SAT 99
--- NOTE | 2023-12-17 15:53 | ED.LOWEXIN ---
HPI - Extremity Injury (Lower) General Chief Complaint: Extremity Injury, Lower Stated Complaint: left knee sore Time Seen by Provider: 12/17/23 15:38 Source: patient and RN notes reviewed Mode of arrival: ambulatory Limitations: no limitations History of Present Illness HPI Narrative: Patient presents today complaining of left knee pain x3 weeks. Denies any known injury or trauma, but states she did step up on the chair that was rather high and believes this may have started her pain. Denies numbness or tingling in the leg or foot. She currently rates her pain 7/10. Pain is only present with weight-bearing and not while sitting. She has tried heat without relief. She has tried no ygfk-vbt-vjsuhfu medication for her symptoms. No previous injuries or surgeries to her knee. Related Data Home Medications Medication Instructions Recorded Confirmed aspirin 81 mg tablet,delayed 81 mg PO DAILY 07/19/19 12/17/23 release (Adult Low Dose Aspirin) cholecalciferol (vitamin D3) 25 1,000 unit PO DAILY 07/19/19 12/17/23 mcg (1,000 unit) capsule zvyhdftzanzy-hqyefbnt-sfdfbt 1 tablet PO DAILY 07/19/19 12/17/23 tablet (Multivitamin 50 Plus tablet) omega-3 fatty acids 1,000 mg 1,000 mg PO DAILY 07/19/19 12/17/23 capsule (Fish Oil Concentrate) ezetimibe 10 mg tablet (Zetia) 10 mg PO DAILY 10/05/19 12/17/23 atorvastatin 80 mg tablet 80 mg PO DAILY 06/11/21 12/17/23 ferrous sulfate 140 mg (45 mg 140 mg PO WEEKLY 09/24/21 12/17/23 iron) tablet,extended release (Slow Release Iron) Allergies Allergy/AdvReac Type Severity Reaction Status Date / Time No Known Allergies Allergy Verified 12/17/23 15:25 Review of Systems Review of Systems: CONSTITUTIONAL: Denies body aches, fever, chills, or sweats. EYES: Denies visual changes, redness, or discharge. ENT: Denies rhinorrhea, congestion, sore throat, or otalgia. CARDIOVASCULAR: Denies chest pain, palpitations, or edema. RESPIRATORY: Denies cough or dyspnea. GASTROINTESTINAL: Denies abdominal pain, nausea, vomiting, or diarrhea. GENITOURINARY: Denies dysuria or hematuria. SKIN: Denies rash, itching, or wounds. MUSCULOSKELETAL: Denies back pain, or myalgia.+ left knee pain NEUROLOGIC: Denies headache, numbness, tingling, or weakness. PSYCH: Denies depression or anxiety. [facility] Past Medical History Medical History Abnormal fasting glucose Anemia hemoglobin 14.3 on 10/21/2022. Atherosclerosis of [place] coronary artery of [place] heart without angina pectoris (~2020) moderate irregularity LAD on CT angiogram stress PET scan with mild abnormality followed by Dr. Ron Moraels. Echo on 08/19/2023 with trace aortic regurgitation and ejection fraction 57%. BMI 39.0-39.9,adult Breast cancer screening by mammogram normal mammogram 01/07/2022. Normal mammogram 01/27/2023. Controlled diabetes mellitus (09/26/20) Fasting glucose 109 with hemoglobin A1c 6.1 06/11/2023. Fasting glucose 99 with hemoglobin A1c 6.1 on 12/15/2022 with urine microalbumin ratio of 22. Elevated TSH (10/21/22) TSH elevated at 5.990 on 10/21/2022. TSH 2.74, free T4 1.15, T3 total was 150 on 12/22/2022. Essential (primary) hypertension Malignant melanoma (~09/26/20) Woody level greater than IV on right upper back Wide excision 5 cm 10/16/2020. CT of the chest was negative on 06/08/2023. Melanoma No metastatic disease or recurrence on CT 06/08/2023. Mixed hyperlipidemia Treated by custom miller Morbid obesity with BMI of 40.0-44.9, adult Neoplasm of skin of back Obesity (BMI 30-39.9) LION on CPAP Failed CPAP . Elevation head of bed. Polyp of colon (01/15/21) small benign-appearing colon polyp on 01/15/2021. Recheck in 5 years. Primary osteoarthritis involving multiple joints Reactive depression (situational) (~10/2021) Rhinitis (~12/2022) Screening for diabetic retinopathy no diabetic retinopathy on 03/09/2023. Seasonal allergic rh
== END 2023-12-17 16:03 | disposition home or self-care (01) ==
PROVIDERS: Emergency Provider Nurse Practitioner; PCP Family Medicine
DX: M25.562 Pain in left knee (principal); D64.9 Anemia, unspecified; I25.10 Atherosclerotic heart disease of native coronary artery without angina pectoris; E11.9 Type 2 diabetes mellitus without complications; I10 Essential (primary) hypertension; E78.2 Mixed hyperlipidemia; E66.01 Morbid (severe) obesity due to excess calories; Z68.39 Body mass index [BMI] 39.0-39.9, adult; E55.9 Vitamin D deficiency, unspecified; Z79.82 Long term (current) use of aspirin; Z85.820 Personal history of malignant melanoma of skin; G47.33 Obstructive sleep apnea (adult) (pediatric)
CPT/HCPCS: 99212; G0463

== ENCOUNTER → 2024-01-05 13:47 | Outpatient (CLI) | payer BC, SELFPAY ==
--- NOTE | ~2024-01-05 | XR_ITS ---
EXAMINATION: XR knee LT min 4V DATE: 01/05/2024 14:07 INDICATION: Posterior left knee pain TECHNIQUE: Weight bearing anteroposterior and Correia, sunrise, and flexed lateral views of the lef t knee were obtained COMPARISON: None. FINDINGS: Alignment is normal. No fracture. Joint spaces appear relatively preserved however there are tiny ma rginal osteophytes in all 3 compartments consistent with minimal tricompartment osteoarthritis. No nilam int effusion/layering lipohemarthrosis. Soft tissues are unremarkable. IMPRESSION: 1. Minimal tricompartmental osteoarthritis at the left knee. Reviewed, dictated and finalized at location A.
== END ==
PROVIDERS: PCP Family Medicine; Visit Provider Family Medicine
DX: M17.12 Unilateral primary osteoarthritis, left knee (principal)
CPT/HCPCS: 73564

== ENCOUNTER 2024-02-15 09:15 | Outpatient (CLI) | payer BC, SELFPAY ==
--- NOTE | ~2024-02-15 | CT_ITS ---
EXAMINATION:CT diagnostic chest w con DATE: 02/15/2024 09:43 INDICATION: Malignant melanoma of the torso. TECHNIQUE: Computed tomography (CT) of the chest was performed with 75 mL Omnipaque 350 intravenous c ontrast. Automated exposure control and iterative reconstruction technique were employed. The dose-le ngth product (DLP) was 577.19 mGy-cm. COMPARISON: Chest CT 10/19/2023 FINDINGS: The lungs demonstrate mild atelectasis. There is mild scarring in paraspinal right lower lo be. No pleural effusion. There is a surgical clip in right axilla. There are no pathologically enlarg ed lymph nodes. Again seen is subcutaneous scarring in the right posterior thorax. There is cortical thinning of the kidneys. There are cysts in the kidneys measuring up to 7 mm on the right. There is a 7 mm stone in left kidney. There are bridging endplate osteophytes at multiple levels in the spine, consistent with diffuse idiopathic skeletal hyperostosis (DISH). There is mild chronic anterior wedgi ng of multiple vertebral bodies. There is mild thoracic spondylosis. IMPRESSION: 1. No evidence of metastatic disease. Reviewed, dictated and finalized at location A.
[2024-02-15 09:37] LABS: Estimated Glomerular Filt Rate > 60
== END 2024-02-15 09:16 | disposition home or self-care (01) ==
LOC: ANHIMG 09:18
PROVIDERS: PCP Family Medicine; Visit Provider Internal Medicine Hematology & Oncology
DX: C43.59 Malignant melanoma of other part of trunk (principal)
CPT/HCPCS: 71260; Q9967

== ENCOUNTER 2024-02-15 09:51 | Outpatient (CLI) | payer BC, SELFPAY ==
[2024-02-15 10:09] LABS: Basophils Absolute Auto 0.1 K/mm3 (0.0-0.1); Basophils Percent Auto 0.6 % (0.2-1.2); Eosinophils Absolute Auto 0.3 K/mm3 (0-0.3); Hematocrit 41.9 % (37.0-47.0); Hemoglobin 14.1 g/dL (12.0-15.0); Immature Granulocyte Absolute 0.03 K/mm3 (0.00-0.031); Immature Granulocyte Percent A 0.4 % (0-0.5); Lymphocytes Absolute Auto 1.78 K/mm3 (0.9-3.2); Lymphocytes Percent Auto 22.4 % (18.3-44.2); Mean Corpuscular HGB Conc 33.7 g/dl (32-36); Mean Corpuscular Hemoglobin 31.7 pg (26-34); Mean Corpuscular Volume 94.2 fl (80-100); Mean Platelet Volume 8.6 fl (7.4-10.4); Monocytes Absolute Auto 0.6 K/mm3 (0.1-0.6); Monocytes Percent Auto 7.2 % (2.6-8.5); Neutrophils Absolute Auto 5.2 K/mm3 (1.3-6.7); Neutrophils Percent Auto 65.4 % (45.5-73.1); Platelet Count Result 269 k/mm3 (150-375); Red Blood Count 4.45 M/mm3 (4.2-5.4); Red Cell Distribution Width 12.4 % (11.5-14.5); White Blood Count 7.9 K/mm3 (4.5-10.0)
[2024-02-15 12:57] LABS: Alanine Aminotransferase 18 U/L (6-35); Albumin Level 4.2 g/dL (3.5-5.1); Alkaline Phosphatase 62 U/L (38-126); Anion Gap 8 mmol/L (4-12); Aspartate Amino Transferase 24 U/L (14-36); Bilirubin,Total 0.6 mg/dL (0.2-1.3); Blood Urea Nitrogen 11 mg/dL (7-17); Calcium 8.9 mg/dL (8.4-10.2); Carbon Dioxide 25 mmol/L (22-30); Chloride 107 mmol/L (98-107); Estimated Glomerular Filt Rate > 60; Glucose 98 mg/dL (65-110); Potassium 4.4 mmol/L (3.4-5.0); Sodium 140 mmol/L (137-145)
== END 2024-02-15 09:52 | disposition home or self-care (01) ==
LOC: ANHLAB 09:53
PROVIDERS: PCP Family Medicine; Visit Provider Internal Medicine Hematology & Oncology
DX: C43.59 Malignant melanoma of other part of trunk (principal)
CPT/HCPCS: 36415; 80053; 85025

== ENCOUNTER 2024-06-21 08:28 | Outpatient (CLI) | payer BC, SELFPAY ==
--- NOTE | ~2024-06-21 | CT_ITS ---
Clinical Indication: Malignant melanoma CT Scan of the Chest with Contrast: Technique: Contiguous sections were acquired throughout the chest after intravenous administration of 75 cc of Omnipaque 350. Dose reduction technique was used on this scan by utilizing automated exposu re control and iterative reconstruction technique. The dose-length product (DLP) was 242.76 mGy-cm. COMPARISON: 02/15/2024 Findings: There is no evidence of any significant mediastinal, hilar or axillary lymphadenopathy. There is no f illing defect in the pulmonary arterial tree to suggest pulmonary embolus. There is no evidence of ao rtic dissection or aneurysm. There is no evidence of pleural or pericardial effusion. The lungs are clear. No pulmonary nodules or infiltrates are noted. Images through the upper abdomen reveal no abnormalities. Impression: No evidence of metastatic disease. Reviewed, dictated and finalized at [facility]. OMING ROOM INSPECTOR Impression: No evidence of metastatic disease.
[2024-06-21 08:55] LABS: Estimated Glomerular Filt Rate > 60
== END 2024-06-21 08:29 | disposition home or self-care (01) ==
PROVIDERS: PCP Family Medicine; Visit Provider Internal Medicine Hematology & Oncology
DX: C43.59 Malignant melanoma of other part of trunk (principal)
CPT/HCPCS: 36415; 71260; 80053; 85025; Q9967

== ENCOUNTER 2024-06-21 09:06 | Outpatient (CLI) | payer BC, SELFPAY ==
[2024-06-21 09:30] LABS: Basophils Absolute Auto 0.1 K/mm3 (0.0-0.1); Basophils Percent Auto 0.6 % (0.2-1.2); Eosinophils Absolute Auto 0.3 K/mm3 (0-0.3); Eosinophils Percent Auto 3.8 % (0-4.4); Hematocrit 41.6 % (37.0-47.0); Hemoglobin 14.3 g/dL (12.0-15.0); Immature Granulocyte Absolute 0.01 K/mm3 (0.00-0.031); Immature Granulocyte Percent A 0.1 % (0-0.5); Lymphocytes Absolute Auto 1.99 K/mm3 (0.9-3.2); Lymphocytes Percent Auto 22.4 % (18.3-44.2); Mean Corpuscular HGB Conc 34.4 g/dl (32-36); Mean Corpuscular Hemoglobin 32.3 pg (26-34); Mean Corpuscular Volume 93.9 fl (80-100); Mean Platelet Volume 8.6 fl (7.4-10.4); Monocytes Absolute Auto 0.7 K/mm3 (0.1-0.6); Monocytes Percent Auto 7.3 % (2.6-8.5); Neutrophils Absolute Auto 5.9 K/mm3 (1.3-6.7); Neutrophils Percent Auto 65.8 % (45.5-73.1); Platelet Count Result 271 k/mm3 (150-375); Red Blood Count 4.43 M/mm3 (4.2-5.4); Red Cell Distribution Width 12.1 % (11.5-14.5); White Blood Count 8.9 K/mm3 (4.5-10.0)
[2024-06-21 10:35] LABS: Alanine Aminotransferase 17 U/L (6-35); Albumin Level 4.1 g/dL (3.5-5.1); Alkaline Phosphatase 68 U/L (38-126); Anion Gap 6 mmol/L (4-12); Aspartate Amino Transferase 23 U/L (14-36); Bilirubin,Total 0.5 mg/dL (0.2-1.3); Blood Urea Nitrogen 9 mg/dL (7-17); Carbon Dioxide 28 mmol/L (22-30); Chloride 104 mmol/L (98-107); Estimated Glomerular Filt Rate > 60; Glucose 100 mg/dL (65-110); Sodium 138 mmol/L (137-145)
== END 2024-06-21 09:07 | disposition home or self-care (01) ==
LOC: ANHLAB 09:07
PROVIDERS: PCP Family Medicine; Visit Provider Internal Medicine Hematology & Oncology
DX: C43.59 Malignant melanoma of other part of trunk (principal)
CPT/HCPCS: 36415; 80053; 85025

== ENCOUNTER 2024-10-17 08:34 | Outpatient (CLI) | payer BC, SELFPAY ==
[2024-10-17 09:01] LABS: Estimated Glomerular Filt Rate > 60
== END 2024-10-17 08:35 | disposition home or self-care (01) ==
LOC: ANHIMG 08:35
PROVIDERS: PCP Family Medicine; Visit Provider Internal Medicine Hematology & Oncology
DX: C43.59 Malignant melanoma of other part of trunk (principal)
CPT/HCPCS: 71260; Q9967

== ENCOUNTER 2024-11-01 11:05 | Outpatient (CLI) | payer BC, SELFPAY ==
[2024-11-01 11:32] LABS: Basophils Absolute Auto 0.1 K/mm3 (0.0-0.1); Basophils Percent Auto 0.7 % (0.2-1.2); Eosinophils Absolute Auto 0.4 K/mm3 (0-0.3); Eosinophils Percent Auto 4.3 % (0-4.4); Immature Granulocyte Absolute 0.02 K/mm3 (0.00-0.031); Immature Granulocyte Percent A 0.2 % (0-0.5); Lymphocytes Absolute Auto 2.13 K/mm3 (0.9-3.2); Lymphocytes Percent Auto 26.2 % (18.3-44.2); Mean Corpuscular HGB Conc 34.1 g/dl (32-36); Mean Corpuscular Volume 93.8 fl (80-100); Mean Platelet Volume 8.7 fl (7.4-10.4); Monocytes Absolute Auto 0.6 K/mm3 (0.1-0.6); Monocytes Percent Auto 7.9 % (2.6-8.5); Neutrophils Absolute Auto 4.9 K/mm3 (1.3-6.7); Neutrophils Percent Auto 60.7 % (45.5-73.1); Platelet Count Result 283 k/mm3 (150-375); Red Blood Count 4.37 M/mm3 (4.2-5.4); Red Cell Distribution Width 12.7 % (11.5-14.5); White Blood Count 8.1 K/mm3 (4.5-10.0)
--- OUTSIDE RECORDS SUMMARY | 2024-11-01 12:58 | XMS_ITS | Encounter Summary ---
Author Organization [facility] Address [address] [place] [address] Care Team Providers Care Welder/Fabricator Name Role Phone Arvin Hurst MD Primary Care Provider [phone] Encounter Details Date Type Department Care Team (Late st Contact Info) Description 08/29/2008 Outpatient Historical HIS MRI DEPT Sallie Tamez MD [address] [facility] [address] [id number] Lump or Mass in Breast Social History Tobacco Use Types Packs/Day Years Used Date Smoking Tobacco: Never Assessed Comments Unknown Sex and Gender Information Value Date Recorded Sex Assigned at Not on file 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 [address] [place] [address] documented as of this encounter Procedures Procedure Name Priority Date/Time Associated Diagnosis Comments MRI BREAST W CONTRAST BILAT Timed Study 08/29/2008 2:52 PM TENSIONING MACHINE OPERATOR documented in this encounter Results * MRI BREAST W CONTRAST BILAT (08/29/2008 2:52 PM TENSIONING MACHINE OPERATOR) Anatomical Region Laterality Modality Breast Bilateral Other 08/29/2008 2:52 PM TENSIONING MACHINE OPERATOR Narrative 09/04/2008 10:21 PM TENSIONING MACHINE OPERATOR [facility] [address] [place], [place] [address] Admit Date: 08/29/2008 ELI DYKES Sex: F Admit Prov: SALLIE TAMEZ Date: 1960 Primary Care Prov: CMRN: [id number] Room: MRI-A SSN: [id number] IMAGING SERVICES Ordering Prov: SALLIE TAMEZ Accession Number: [id number] Addendum The patient's prior study from [facility] dated March 2005, April 2006 and April 2008 have just been made available for comparison. The mass in the far posterior 9:00 position of the right breast was present on studies dating back to 2004. However, on the mammograms, the image is incompletely evaluated on all studies as it is located at the very far posterior aspect of the right breast. Again, this is felt to most likely represent a benign finding, such as a fibroadenoma. However, 6 month followup right breast ultrasound is recommended to ensure the complete stability of this lesion. Overall assessment: BIRADS category 3 - probably benign findings Recommendation: 6 month followup ultrasound is recommended to ensure stability of the probably benign fibroadenoma at the very far posterior aspect of the right breast. Dictated by: LATA ROLLE Electronically signed by: LATA ROLLE 09/04/2008 22:20 Transcribed: 09/04/2008 22:01 AMK Interpretation BILATERAL BREAST MRI WITH IV CONTRAST 08/29/2008 History: The patient has a right breast mass identified on mammograms, but not seen with ultrasound. Technique: Multisequence, multiplanar breast MRI was performed before and after the intravenous administration of 20 ml of Optimark. Images were reviewed on the [employer] workstation. Breast Composition: Scattered fibroglandular densities. Background Enhancement: Minimal. Reviewing Radiologists: Dr. Orlando Rolle and Dr. Dang Gomez. Findings: At the very far posterior 9:00 position of the right breast, a 1.5 x 0.9 cm mass is identified. This demonstrates predominantly persistent type of enhancement kinetics, which are in theory the most benign type of enhancement kinetics. The lesion has smooth margins and demonstrates heterogeneity on the T2-weighted images. These findings would all suggest a benign lesion. No other suspicious enhancing masses are identified within the right breast. No lymphadenopathy is identified on the right. In the left breast, no suspicious enhancing masses are identified. No lymphadenopathy or skin thickening is seen. Overall assessment: BIRADS category 3 - probably benign findings. Impression: The patient has a mass in the far posterior 9:00 position of the right breast. This most likely represents a benign lesion, such as a fibroadenoma. However, a 6-month followup mammogram is recommended to ensure complete stability. Report revised on 09/04/2008 10:20:55 PM by LATA ROLLE Dictated by: LATA ROLLE Electronically signed by: LATA ROLLE 08/31/2008 13:07 Transcribed: 08/30/2008 19:52 SDJ Procedure Note Lata Rolle - 09/04/[address] [address] Admit Date: 08/29/2008 ELI DYKES Sex: F Admit Prov: SALLIE TAMEZ Date: 1960 Primary Care Prov: CMRN: [id number] [facility]: [id number] IMAGING SERVICES Ordering Prov: SALLIE TAMEZ Addendum The patient's prior study from [facility] dated March 2005, April 2006 and April 2008 have just beenmade available for comparison. The mass in the far posterior 9:00 positionof the right breast was present on studies dating back to 2004. However,on the mammograms, the image is incompletely evaluated on all studies asit is located at the very far posterior aspect of the right breast. Again,this is felt to most likely represent a benign finding, such as afibroadenoma. However, 6 month followup right breast ultrasound is recommended toensure the complete stability of this lesion. Overall assessment: BIRADS category 3 - probably benign findings Recommendation: 6 month followup ultrasound is recommended to ensure stability ofthe probably benign fibroadenoma at the very far posterior aspect of theright breast. Dictated by: LATA ROLLE Electronically signed by: LATA ROLLE 09/04/2008 22:20 Transcribed: 09/04/2008 22:01 AMK Interpretation BILATERAL BREAST MRI WITH IV CONTRAST 08/29/2008 History: The patient has a right breast mass identified onmammograms, but not seen with ultrasound. Technique: Multisequence, multiplanar breast MRI was performed beforeand after the intravenous administration of 20 ml of Optimark. Imageswere reviewed on the [employer] workstation. Breast Composition: Scattered fibroglandular densities. Background Enhancement: Minimal. Reviewing Radiologists: Dr. Orlando Rolle and Dr. Dang Gomez. Findings: At the very far posterior 9:00 position of the rightbreast, a 1.5 x 0.9 cm mass is identified. This demonstrates predominantlypersistent type of enhancement kinetics, which are in theory the most benigntype of enhancement kinetics. The lesion has smooth margins anddemonstrates heterogeneity on the T2-weighted images. These findings would allsuggest a benign lesion. No other suspicious enhancing masses are identifiedwithin the right breast. No lymphadenopathy is identified on the right. Inthe left breast, no suspicious enhancing masses are identified. No lymphadenopathy or skin thickening is seen. Overall assessment: BIRADS category 3 - probably benign findings. Impression: The patient has a mass in the far posterior 9:00 position of theright breast. This most likely represents a benign lesion, such as a fibroadenoma. However, a 6-month followup mammogram is recommendedto ensure complete stability. Report revised on 09/04/2008 10:20:55 PM by LATA ROLLE Dictated by: LATA ROLLE Electronically signed by: LATA ROLLE 08/31/2008 13:07 Transcribed: 08/30/2008 19:52 SDJ us Sallie Tamez MD MR ORDERABLES Edited documented in this encounter Visit Diagnoses Diagnosis Lump or mass in breast documented in this encounter Care Teams Welder/Fabricator Relationship Specialty Start Date End Date Arvin Hurst MD [address] [place] [address] PCP - General 08/20/08 documented as of this encounter
--- OUTSIDE RECORDS SUMMARY | 2024-11-01 12:58 | XMS_ITS | Clinical Summary ---
Author Organization [facility] Address [address] [place] [address] Care Team Providers Care Instructional Designer Name Role Phone Arvin Hurst MD Primary Care Provider [phone] Source Comments [facility],non-owned Affiliates and Associated Physician Practices is amultiple site organization consisting of ambulatory clinics and hospital sitesin [place], [place], [place] and [place]. This disclosure is being madepursuant to the Care Everywhere program and may not contain all information available regarding this patient. Last updated 18.[facility] [place] Allergies No known active allergies Immunizations Name Administration Dates Next Due FLU VACCINE QUAD IIV4 PF ID 05/11/2016 INFLUENZA VACCINE, QUADR. (F LUZONE; FLULAVAL; FLUARIX; AFLURIA QUADRIVALENT; 6MO+), 0.5 ML (IIV4) 05/26/2017 Social History Tobacco Use Types Packs/Day Years Used Date Smoking Tobacco: Never Assessed Sex and Gender Information Value Date Recorded Sex Assigned at Not on file Gender Identity Not on file Sexual Orientation Not on file Plan of Treatment Health Maintenance Due Date Last Done Comments COLOGUARD (AGES 45-75) - COL ON CA SCREENING 1960 COLON MONITORING 1960 COLONOSCOPY - COLON CA SCREENING 1962 CT COLONOGRAPHY - COLON CA SCREENING 1960 Colorectal Cancer Screening 1960 FIT - COLON CA SCREENING 1962 FLEX SIG - COLON CA SCREENING 1960 LIPID TESTING 1960 MAMMOGRAM 1960 PAP SMEAR 1962 HIV SCREENING 1977 HEPATITIS C SCREENING 04/20/1980 DTAP/TDAP/TD VACCINES (1 - Tdap) 1981 PNEUMOCOCCAL VACCINE 50+ (1 of 1 - PCV) 2012 ZOSTER VACCINE (1 of 2) 2012 COVID-19 VACCINE (1 - 2023-2 5 season) 2024 INFLUENZA VACCINE (#1) 2024 7, 05/11/2016 DEPRESSION SCREENING 08/16/2024 Respiratory Syncytial Virus (RSV) Vaccine Pt: or over 60 yrs (1 - 1-dose 75+ series) 2037 HEPATITIS B VACCINE Aged Out No longe r eligible based on patient's age to complete this topic HIB VACCINE Aged Out No longer eligi ble based on patient's age to complete this topic HPV VACCINE Aged Out No longer eligi ble based on patient's age to complete this topic MENINGOCOCCAL (Group B) VACCINE SHARED DECISION-MAKING Aged Out No longer eligible based on patient's age to complete this topic MENINGOCOCCAL GROUPS A/C/Y/W VACCINE Aged Out No longer eligible b ased on patient's age to complete this topic PNEUMOCOCCAL VACCINE Aged Out No long er eligible based on patient's age to complete this topic Care Teams Instructional Designer Relationship Specialty Start Date End Date Arvin Hurst MD [address] [place] [address] PCP - General 03/31/22
--- OUTSIDE RECORDS SUMMARY | 2024-11-01 12:58 | XMS_ITS | Clinical Summary ---
Author Organization [facility] [place] Address [address] [place] [address] Phone Care Team Providers Care Knowledge Architect Name Role Phone Arvin Hurst MD Primary Care Provider [phone] Allergies No known active allergies Medications Irbesartan (AVAPRO) 300 mg tablet Take 300 mg by mouth daily at bedtime. Active aspirin (ECOTRIN EC) 81 mg Tablet, Delayed Release (E.C.) Take 81 mg by mouth daily. Active cholecalcifero l, Vitamin D3, (VITAMIN D3) 25 mcg (1,000 unit) Capsule Take by mouth daily. Active ferrous sulfate (SLOW RELEASE IRON) 142 mg (45 mg iron) Tablet Sustained Release Take 142 mg by mouth every 7 days. Active multivit with minerals/lutei n (MULTIVITAMIN 50 PLUS ORAL) Take by mouth. 1 Active Sgbmj-1-TDV-EP A-Fish Oil 1,200 (144-216) mg Capsule Active amLODIPine (NORVASC) 5 mg tablet Take 5 mg by mouth daily. 2 Active ezetimibe (ZETIA) 10 mg tablet Take 10 mg by mouth daily. 2 Active lidocaine-pril ocaine (EMLA) 2.5-2.5 % CreamIndicatio ns:Malignant melanoma of torso excluding breast (CMS/HCC),Velia noma of trunk (CMS/HCC) Apply to affected area see administration instructions. Apply to port site 30 minutes prior to access - Topical 30 Gram 3 2 Active atorvastatin (LIPITOR) 80 mg tablet Take 80 mg by mouth daily. Active Starport SystemsTouch Ultra Test Strip USE TO TEST ONCE DAILY 2 Active OneTouch Ultra2 Meter USE TO CHECK BLOOD SUGAR DAILY 2 Active OneTouch Delica Plus Lancet 33 gauge USE TO CHECK BLOOD SUGAR DAILY 2 Active NIVOLUMAB IV 240 mg. 2 Active Ozempic 0.25 mg or 0.5 mg (2 mg/3 mL) Pen Injector Inject 1 mg by subcutaneous injection every 7 days. 4 Active meloxicam (MOBIC) 15 mg tablet Take 15 mg by mouth daily. 4 Active Active Problems Problem Noted Date Diagnosed Date Melanoma of trunk 11/01/2020 Encounters Date Type Department Care Team Description 10/23/2024 External Device Data STL ABSTRACTION Provider, Abstract 10/17/2024 Orders Only [facility] Oncology and Hematology [facility] [address] [place] [address] Dr [address] [place] [address] Rajesh Mejía MD 10/04/2024 External Device Data STL ABSTRACTION Provider, Abstract 10/04/2024 External Device Data STL ABSTRACTION Provider, Abstract 09/19/2024 External Device Data STL ABSTRACTION Provider, Abstract 09/13/2024 External Device Data STL ABSTRACTION Provider, Abstract 09/07/2024 External Device Data STL ABSTRACTION Provider, Abstract 08/29/2024 External Device Data STL ABSTRACTION Provider, Abstract from Last 3 Months Family History Medical History Relation Name Comments Diabetes Brother 1 Diabetes Brother 2 Colon Cancer Father Heart Disease Father Prostate Cancer Father Diabetes Mother Heart Disease Mother Skin Cancer Mother Relation Name Status Comments Brother 1 Alive Brother 2 Alive Father Mother Social History Tobacco Use Types Packs/Day Years Used Date Smoking Tobacco: Never Smokeless Tobacco: Never Tobacco Cessation:Counseling Given: Not Answered Alcohol Use Standard Drinks/Week Comments Never 0 (1 standard drink = 0.6 oz pur e alcohol) Comments No Sex and Gender Information Value Date Recorded Sex Assigned at Not on file Legal Sex Female 5:40 AM CUSTOMER MARKETING ASSISTANT Gender Identity Not on file Sexual Orientation Not on file Last Filed Vital Signs Vital Sign Reading Time Taken Comments Blood Pressure 154/80 07/05/2024 1:48 PM CUSTOMER MARKETING ASSISTANT Pulse 82 07/05/2024 1:48 PM CUSTOMER MARKETING ASSISTANT Temperature 36.7 C (98 F) 07/05/2024 1:48 PM CUSTOMER MARKETING ASSISTANT Respiratory Rate 16 07/05/2024 1:48 PM CUSTOMER MARKETING ASSISTANT Oxygen Saturation 97% 07/05/2024 1:48 PM CUSTOMER MARKETING ASSISTANT Inhaled Oxygen Concentration - - Weight 104.3 kg (230 lb) 07/05/2024 1:48 PM CUSTOMER MARKETING ASSISTANT Height 165.1 cm (5' 5 ) 06/05/2022 9:38 AM CDT Body Mass Index 38.27 06/05/2022 9:38 AM CDT Plan of Treatment Upcoming Encounters Date Type Department Care Team (Late st Contact Info) Description 11/15/2024 11:45 AM CDT Office Visit [facility] Oncology and Hematology [facility] [address] [facility] [address] [place] [address] Rajesh Mejía MD [address] [facility] [address] [place] [address] Health Maintenance Due Date Last Done Comments Pre-Diabetes and Diabetes Screening 1962 DTAP/TDAP/TD VACCINES (1 - Tdap) 1981 CERVICAL CANCER SCREENING 1992 COLORECTAL SCREENING 2007 Colorectal Cancer Screening 2007 FIT-DNA Q 3 years 2007 FIT/FOBT Q 1 year 2007 Flex Sig/CT Colonography Q 5 years 2007 ZOSTER VACCINE (1 of 2) 2012 BREAST CANCER SCREENING 06/24/2012 06/24/20 11, 05/29/2010, 11/15/2009 INFLUENZA VACCINE (#1) 2024 , 05/26/2017, 05/11/2016 Preventative Visit- Commercial 08/16/2024 RSV VACCINE (60+ or ) (1 - 1-dose 75+ series) 2037 Procedures Procedure Name Priority Date/Time Associated Diagnosis Comments CT CHEST W CONTRAST Routine 10/17/2024 10:23 AM CUSTOMER MARKETING ASSISTANT MAMMO SCREEN BILAT W OR WO CAD Routine 06/24/2011 from Last 3 Months or Most Recently Relevant to Health Maintenance Results * CT CHEST W CONTRAST (10/17/2024 10:23 AM CUSTOMER MARKETING ASSISTANT) Anatomical Region Laterality Modality Chest Computed Tomogra phy us Rajesh Mejía MD CT ORDERABLES Final Result * MAMMO DIGITAL SCREEN BILAT (06/24/2011) Anatomical Region Laterality Modality Breast Bilateral Other us Anisha Singh MD MAMMO ORDERABLES Final Result from Last 3 Months or Most Recently Relevant to Health Maintenance Insurance BLUE ACCESS CHOICE Care Teams Knowledge Architect Relationship Specialty Start Date End Date Arvin Hurst MD [address] [place] [phone] PCP - General 08/20/08
[2024-11-01 16:57] LABS: Alanine Aminotransferase 23 U/L (6-35); Albumin Level 4.4 g/dL (3.5-5.1); Alkaline Phosphatase 71 U/L (38-126); Anion Gap 9 mmol/L (4-12); Aspartate Amino Transferase 62 U/L (14-36); Bilirubin,Total 0.8 mg/dL (0.2-1.3); Blood Urea Nitrogen 9 mg/dL (7-17); Calcium 9.4 mg/dL (8.4-10.2); Carbon Dioxide 27 mmol/L (22-30); Chloride 105 mmol/L (98-107); Estimated Glomerular Filt Rate > 60; Glucose 98 mg/dL (65-110); Potassium 4.6 mmol/L (3.4-5.0); Sodium 141 mmol/L (137-145)
== END 2024-11-01 11:06 | disposition home or self-care (01) ==
PROVIDERS: PCP Family Medicine; Visit Provider Internal Medicine Hematology & Oncology
DX: C43.59 Malignant melanoma of other part of trunk (principal)
CPT/HCPCS: 36415; 80053; 85025

== ENCOUNTER 2025-03-20 08:19 | Outpatient (CLI) | payer BC, SELFPAY ==
--- NOTE | ~2025-03-20 | CT_ITS ---
Clinical Indication: Malignant melanoma CT Scan of the Chest with Contrast: Technique: Contiguous sections were acquired throughout the chest after intravenous administration of 100 cc of Omnipaque 350. Dose reduction technique was used on this scan by utilizing automated expos ure control and iterative reconstruction technique. The dose-length product (DLP) was 292.13 mGy-cm. COMPARISON: 10/17/2024 Findings: There is no evidence of any significant mediastinal, hilar or axillary lymphadenopathy. There is no f illing defect in the pulmonary arterial tree to suggest pulmonary embolus. There is no evidence of ao rtic dissection or aneurysm. There is no evidence of pleural or pericardial effusion. The lungs are clear. No pulmonary nodules or infiltrates are noted. Images through the upper abdomen reveal no abnormalities. Impression: No significant abnormality seen. No evidence for malignancy or metastatic disease. Reviewed, dictated and finalized at [facility]. Impression: No significant abnormality seen. No evidence for malignancy or metastatic disea se.
--- OUTSIDE RECORDS SUMMARY | 2025-03-20 08:23 | XMS_ITS | Clinical Summary ---
Author Organization [facility] Address [address] [place] [address] Care Team Providers Care Household Chores Name Role Phone Arvin Hurst MD Primary Care Provider [phone] Source Comments [facility],non-owned Affiliates and Associated Physician Practices is amultiple site organization consisting of ambulatory clinics and hospital sitesin [place], [place], [place] and [place]. This disclosure is being madepursuant to the Care Everywhere program and may not contain all information available regarding this patient. Last updated 18.[facility] [employer] Allergies No known active allergies Immunizations Immunization Administration Dates Next Due FLU VACCINE QUAD IIV4 PF ID 05/11/2016 INFLUENZA VACCINE, QUADR. (F LUZONE; FLULAVAL; FLUARIX; AFLURIA QUADRIVALENT; 6MO+), 0.5 ML (IIV4) 05/26/2017 Social History Tobacco Use Types Packs/Day Years Used Date Smoking Tobacco: Never Assessed Comments Unknown Sex and Gender Information Value Date Recorded Sex Assigned at Not on file Legal Sex Female 10:59 AM CDT Gender Identity Not on file Sexual Orientation [...] SCREENING 1960 LIPID TESTING 1962 MAMMOGRAM 1962 HIV SCREENING 1977 HEPATITIS C SCREENING 04/20/1980 DTAP/TDAP/TD VACCINES (1 - Tdap) 1981 PNEUMOCOCCAL VACCINE 50+ (1 of 1 - PCV) 2012 ZOSTER VACCINE (1 of 2) 2012 COVID-19 VACCINE (1 - 2023-2 5 season) 2024 DEPRESSION SCREENING 08/16/2024 INFLUENZA VACCINE (#1) 2025 7, 05/11/2016 Respiratory Syncytial Virus (RSV) Vaccine Pt: or [...] on patient's age to complete this topic Insurance G[employer]VINDER Care Teams Household Chores Relationship Specialty Start Date End Date Arvin Hurst MD [address] [place] [address] PCP - General 03/31/22
--- OUTSIDE RECORDS SUMMARY | 2025-03-20 08:23 | XMS_ITS | Encounter Summary ---
Author Organization [facility] Address [address] [place] [address] Care Team Providers Care Boots And Shoes Supervisor Name Role Phone Arvin Hurst MD Primary Care Provider [phone] Encounter Details Date Type Department Care Team (Late st Contact Info) Description 08/29/2008 Outpatient Historical HIS MRI DEPT Sallie Tamez MD [address] [facility] [address] [place] [address] Lump or Mass in Breast Social History Tobacco Use Types Packs/Day Years Used Date Smoking Tobacco: Never Assessed Comments Unknown Sex and Gender Information Value Date Recorded Sex Assigned at Not on file Legal Sex Female 5:40 AM SLIVER HANDLER Gender Identity Not on file Sexual Orientation Not on file documented as of this encounter Plan of Treatment Upcoming Encounters Date Type Department Care Team (Late st Contact Info) Description 03/27/2025 1:15 PM CDT Office Visit [facility] Oncology and Hematology - Gigi [address] [facility] [address] [place] [address] Rajesh Mejía MD [address] [facility] [address] [place] [address] documented as of this encounter Procedures Procedure Name Priority Date/Time Associated Diagnosis Comments MRI BREAST W CONTRAST BILAT Timed Study 08/29/2008 2:52 PM SLIVER HANDLER documented in this encounter Results * MRI BREAST W CONTRAST BILAT (08/29/2008 2:52 PM SLIVER HANDLER) Anatomical Region Laterality Modality Breast Bilateral Other 08/29/2008 2:52 PM SLIVER HANDLER Narrative 09/04/2008 10:21 PM SLIVER HANDLER [facility] [address] [place], [place] [address] Admit Date: 08/29/2008 ELI DYKES Sex: F Admit Prov: SALLIE TAMEZ Date: 1960 Primary Care Prov: CMRN: [id number] Room: MRI-A SSN: [id number] IMAGING SERVICES Ordering Prov: SALLIE TAMEZ Accession Number: [id number] Addendum The patient's prior study from [facility] dated March 2005, April 2006 [...] of Optimark. Images were reviewed on the Giv.to workstation. Breast Composition: Scattered fibroglandular densities. Background [...] SDJ Procedure Note Lata Rolle - 09/04/[address] [address] Admit Date: 08/29/2008 ELI DYKES Sex: F Admit Prov: SALLIE TAMEZ Date: 1960 Primary Care Prov: CMRN: [id number] [facility]: [id number] IMAGING SERVICES Ordering Prov: SALLIE TAMEZ Addendum The patient's prior study from [facility] dated March 2005, April 2006 and April [...] ml of Optimark. Imageswere reviewed on the Giv.to workstation. Breast Composition: Scattered fibroglandular densities. Background [...] breast documented in this encounter Care Teams Boots And Shoes Supervisor Relationship Specialty Start Date End Date Arvin Hurst MD [address] [place] [address] PCP - General 08/20/08 documented as of this encounter
--- OUTSIDE RECORDS SUMMARY | 2025-03-20 08:23 | XMS_ITS | Clinical Summary ---
Author Organization [facility] [place] Address [address] [place] [address] Phone Care Team Providers Care Citrix Consultant Name Role Phone Arvin Hurst MD Primary Care Provider [phone] Allergies No known active allergies Medications Irbesartan [...] PLUS ORAL) Take by mouth. 1 Active Cmcjd-8-LRL-EP A-Fish Oil 1,200 (144-216) mg Capsule Active [...] Take 80 mg by mouth daily. Active Timber Ridge Fish HatcheryTouch Ultra Test Strip USE TO TEST ONCE [...] Encounters Date Type Department Care Team Description 03/15/2025 Orders Only [facility] Oncology and Hematology - Gigi [address] [facility] [address] [address] Rajesh eMjía MD 02/28/2025 External Device Data STL ABSTRACTION Provider, Abstract 02/28/2025 External Device Data STL ABSTRACTION Provider, Abstract 01/31/2025 External Device Data STL ABSTRACTION Provider, Abstract 01/03/2025 External Device Data STL ABSTRACTION Provider, Abstract 01/02/2025 External Device Data STL ABSTRACTION Provider, Abstract [...] file Legal Sex Female 5:40 AM CUSTOMER SERVICES MANAGER Gender Identity Not on file Sexual Orientation Not on file Last Filed Vital Signs Vital Sign Reading Time Taken Comments Blood Pressure 134/84 11/15/2024 11:24 AM CDT Pulse 75 11/15/2024 11:24 AM CDT Temperature 35.9 C (96.6 F) 11/15/2024 11:24 AM CDT Respiratory Rate 16 11/15/2024 11:2 4 AM CDT Oxygen Saturation 96% 11/15/2024 11: 24 AM CDT Inhaled Oxygen Concentration - - Weight 102.7 kg (226 lb 6.4 oz) 025 11:24 AM CDT Height 165.1 cm (5' 5) 06/05/2022 9:38 AM CDT Body Mass Index 37.67 06/05/2022 9:38 AM CDT Plan of Treatment Upcoming Encounters Date Type Department Care Team (Late st Contact Info) Description 03/27/2025 1:15 PM CDT Office Visit [facility] Oncology and Hematology [facility] [address] [facility] [address] [place] [address] Rajesh Mejía MD [address] [facility] [address] [place] [address] Health Maintenance Due Date Last Done Comments Pre-Diabetes and Diabetes Screening 1962 DTAP/TDAP/TD VACCINES (1 - Tdap) 1981 HPV/Cotest (21-29) 1983 CERVICAL CANCER SCREENING 1992 HPV/Cotest (30-65) 1992 PAP SMEAR 1992 COLORECTAL SCREENING 2007 Colorectal Cancer Screening 2007 FIT-DNA Q 3 years 2007 FIT/FOBT Q 1 year 2007 Flex Sig/CT Colonography Q 5 years 2007 ZOSTER VACCINE (1 of 2) 2012 INFLUENZA VACCINE (#1) 2025 1, 05/26/2017, 05/11/2016 BREAST CANCER SCREENING 03/15/2026 03/15/20 25, 03/07/2025, 09/26/2019, Additional history exists RSV VACCINE (60+ or ) (1 - 1-dose 75+ series) 2037 Procedures Procedure Name Priority Date/Time Associated Diagnosis Comments MAMMO DIAGNOSTIC UNI RIGHT W OR WO CAD Routine 03/15/2025 12:39 PM CDT MAMMO SCREENING BILAT Routine 03/07/2025 11:44 AM CDT from Last 3 Months Results * MAMMO DIAGNOSTIC UNI RIGHT W OR WO CAD (03/15/2025 12:39 PM CDT) Anatomical Region Laterality Modality Breast Right Mammography us Rajesh Mejía MD MAMMO ORDERABLES Final Result * MAMMO SCREENING BILAT (03/07/2025 11:44 AM CDT) Anatomical Region Laterality Modality Breast Bilateral Mammography Rajesh Mejía MD MAMMO ORDERABLES Final Result from Last 3 Months Insurance Care Teams Citrix Consultant Relationship Specialty Start Date End Date Arvin Hurst MD [facility] [place] [address] PCP - General 08/20/08
--- OUTSIDE RECORDS SUMMARY | 2025-03-20 08:23 | XMS_ITS | Encounter Summary ---
Author Organization [facility] [employer] [facility] Address [address] [place] [address] Care Team Providers Care Precision Aircraft Structure Assembler Name Role Phone Arvin Hurst MD Primary Care Provider [phone] Encounter Details Date Type Department Care Team (Late Contact Info) Description 03/15/2025 Orders Only [facility] Oncology and Hematology [facility] [address] [place] [address] Rajesh Mejía MD [facility] [employer] [address] [address] Social History Tobacco Use Types Packs/Day Years Used Date Smoking Tobacco: Never Smokeless Tobacco: Never Alcohol Use Standard Drinks/Week Comments Never 0 (1 standard drink = 0.6 oz pur e alcohol) Comments No Sex and Gender Information Value Date Recorded Sex Assigned at Not on file Legal Sex Female 5:40 AM FILM WRITER Gender Identity Not on file Sexual Orientation Not on file documented as of this encounter Plan of Treatment Upcoming Encounters Date Type Department Care Team (Late st Contact Info) Description 03/27/2025 1:15 PM CDT Office Visit [facility] Oncology and Hematology [facility] Richard [address] [place] [address] Rajesh Mejía MD [address] [employer] [address] [address] documented as of this encounter Procedures Procedure Name Priority Date/Time Associated Diagnosis Comments MAMMO DIAGNOSTIC UNI RIGHT W OR WO CAD Routine 03/15/2025 12:39 PM CDT MAMMO SCREENING BILAT Routine 03/07/2025 11:44 AM CDT documented in this encounter Results * MAMMO DIAGNOSTIC UNI RIGHT W OR WO CAD (03/15/2025 12:39 PM CDT) Anatomical Region Laterality Modality Breast Right Mammography us Rajesh Mejía MD MAMMO ORDERABLES Final Result * MAMMO SCREENING BILAT (03/07/2025 11:44 AM CDT) Anatomical Region Laterality Modality Breast Bilateral Mammography us Rajesh Mejía MD MAMMO ORDERABLES Final Result documented in this encounter Visit Diagnoses Not on filedocumented in this encounter Care Teams Precision Aircraft Structure Assembler Relationship Specialty Start Date End Date Arvin Hurst MD [address] [place] [address] PCP - General 08/20/08 documented as of this encounter
== END 2025-03-20 08:20 | disposition home or self-care (01) ==
PROVIDERS: PCP Family Medicine; Visit Provider Internal Medicine Hematology & Oncology
DX: C43.59 Malignant melanoma of other part of trunk (principal)
CPT/HCPCS: 71260; Q9967

== ENCOUNTER 2025-03-20 08:57 | Outpatient (CLI) | payer BC, SELFPAY ==
[2025-03-20 09:08] LABS: Hematocrit 40.4 % (37.0-47.0); Hemoglobin 13.8 g/dL (12.0-15.0); Immature Granulocyte Percent A 0.2 % (0-0.5); Lymphocytes Absolute Auto 2.14 K/mm3 (0.9-3.2); Mean Corpuscular HGB Conc 34.2 g/dl (32-36); Mean Corpuscular Hemoglobin 32.3 pg (26-34); Mean Corpuscular Volume 94.6 fl (80-100); Nucleated Red Blood Cells Absolute Auto 0.000 K/mm3 (0.0-0.012); Nucleated Red Blood Cells Perc 0.0 % (0.0-0.2); Platelet Count Result 277 k/mm3 (150-375); Red Blood Count 4.27 M/mm3 (4.2-5.4); White Blood Count 9.3 K/mm3 (4.5-10.0)
--- OUTSIDE RECORDS SUMMARY | 2025-03-20 09:12 | XMS_ITS | Encounter Summary ---
Author Organization [facility] Address [address] [place] [address] Care Team Providers Care Mid Level Clinician Name Role Phone Arvin Hurst MD Primary Care Provider Encounter Details Date Type Department Care Team (Late st Contact Info) Description 08/29/2008 Outpatient Historical HIS MRI DEPT Sallie Tamez MD [address] [facility] [address] [place] [address] Lump or Mass in Breast Social History Tobacco Use Types Packs/Day Years Used Date Smoking Tobacco: Never Assessed Comments Unknown Sex and Gender Information Value Date Recorded Sex Assigned at Not on file Legal Sex Female 5:40 AM INSPECTOR TESTER SORTER Gender Identity Not on file Sexual Orientation Not on file documented as of this encounter Plan of Treatment Upcoming Encounters Date Type Department Care Team (Late st Contact Info) Description 03/27/2025 1:15 PM CDT [facility] Visit [facility] Oncology and Hematology - Gigi [address] [facility] [address] [place] [address] Rajesh Mejía MD [address] [facility] [address] [place] [address] documented as of this encounter Procedures Procedure Name Priority Date/Time Associated Diagnosis Comments MRI BREAST W CONTRAST BILAT Timed Study 08/29/2008 2:52 PM INSPECTOR TESTER SORTER documented in this encounter Results * MRI BREAST W CONTRAST BILAT (08/29/2008 2:52 PM INSPECTOR TESTER SORTER) Anatomical Region Laterality Modality Breast Bilateral Other 08/29/2008 2:52 PM INSPECTOR TESTER SORTER Narrative 09/04/2008 10:21 PM INSPECTOR TESTER SORTER [facility] [address] [place], [place] [address] Admit Date: 08/29/2008 ELI DYKES Sex: F Admit Prov: SALLIE TAMEZ Date: 1960 Primary Care Prov: CMRN: [id number] Room: MRI-A SSN: [id number] IMAGING SERVICES Ordering Prov: SALLIE TAMEZ Accession Number: [id number] Addendum The patient's prior study from [facility] dated March 2005, April 2006 [...] of Optimark. Images were reviewed on the Odojo workstation. Breast Composition: Scattered fibroglandular densities. Background [...] 10:20:55 PM by LATA ROLLE Dictated by: LAAT ROLLE Electronically signed by: LATA ROLLE 08/31/2008 13:07 Transcribed: 08/30/2008 19:52 SDJ Procedure Note Lata Rolle - 09/04/[address] [address] Admit Date: 08/29/2008 ELI DYKES Sex: F Admit Prov: SALLIE TAMEZ Date: 1960 Primary Care Prov: CMRN: [id number] [facility]: [id number] IMAGING SERVICES Ordering Prov: SALLIE TAMEZ Addendum The patient's prior study from [facility] dated March 2005, April 2006 and [...] ml of Optimark. Imageswere reviewed on the Odojo workstation. Breast Composition: Scattered fibroglandular densities. Background [...] breast documented in this encounter Care Teams Mid Level Clinician Relationship Specialty Start Date End Date Arvin Hurst MD [address] [place] [address] PCP - General 08/20/08 documented as of this encounter
--- OUTSIDE RECORDS SUMMARY | 2025-03-20 09:12 | XMS_ITS | Clinical Summary ---
Author Organization [facility] [place] Address [address] [place] [address] Phone Care Team Providers Care Night Time Babysitter Name Role Phone Arvin Hurst MD Primary Care Provider [phone] Allergies No known active allergies Medications Irbesartan [...] PLUS ORAL) Take by mouth. 1 Active Ivfac-9-NMC-EP A-Fish Oil 1,200 (144-216) mg Capsule Active [...] Take 80 mg by mouth daily. Active Branching MindsTouch Ultra Test Strip USE TO TEST ONCE [...] Department Care Team Description 03/15/2025 Orders Only [facility] Oncology and Hematology - [place] [address] [address] Rajesh Mejía MD 02/28/2025 External Device Data STL ABSTRACTION [...] on file Legal Sex Female 5:40 AM SHEET HEATER HELPER Gender Identity Not on file Sexual Orientation [...] Description 03/27/2025 1:15 PM CDT Office Visit [facility] Oncology and Hematology [facility] [address] [facility] [address] [place] [address] Rajesh Mejía MD [address] [facility] [address] [place] [address] Health Maintenance Due Date Last Done Comments Pre-Diabetes and Diabetes Screening 1960 DTAP/TDAP/TD VACCINES (1 - Tdap) 1981 HPV/Cotest (21-29) 1983 CERVICAL CANCER SCREENING 1992 HPV/Cotest (30-65) 1992 PAP SMEAR 1992 COLORECTAL SCREENING 2007 Colorectal Cancer Screening 2007 FIT-DNA Q 3 years 2007 FIT/FOBT Q 1 year 2007 Flex Sig/CT Colonography Q 5 years 2007 ZOSTER VACCINE (1 of 2) 2012 Preventative Visit- Commercial 08/16/2024 INFLUENZA VACCINE (#1) 2025 1, 05/26/2017, 05/11/2016 [...] Anatomical Region Laterality Modality Breast Right Mammography Rajesh Mejía MD MAMMO ORDERABLES Final Result * MAMMO SCREENING BILAT (03/07/2025 11:44 AM CDT) Anatomical Region Laterality Modality Breast Bilateral Mammography Rajesh Mejía MD MAMMO ORDERABLES Final Result from Last 3 Months Insurance [facility] [address] BLUE ACCESS CHOICE Care Teams Night Time Babysitter Relationship Specialty Start Date End Date Arvin Hurst MD [facility] [place] [address] PCP - General 08/20/08
--- OUTSIDE RECORDS SUMMARY | 2025-03-20 09:12 | XMS_ITS | Encounter Summary ---
Author Organization [facility] [employer] [facility] Address [address] [place] [address] Care Team Providers Care Director Of Analytical Development Name Role Phone Arvin Hurst MD Primary Care Provider [phone] Encounter Details Date Type Department Care Team (Late Contact Info) Description 03/15/2025 Orders Only [facility] Oncology and Hematology [facility] [address] [place] [address] Rajesh Mejía MD [facility] [employer] [address] [place] [address] Social History Tobacco Use Types Packs/Day Years Used Date Smoking Tobacco: Never Smokeless Tobacco: Never Alcohol Use Standard Drinks/Week Comments Never 0 (1 standard drink = 0.6 oz pur e alcohol) Comments No Sex and Gender Information Value Date Recorded Sex Assigned at Not on file Legal Sex Female 5:40 AM WIRE MESH GATE ASSEMBLER Gender Identity Not on file Sexual Orientation Not on file documented as of this encounter Plan of Treatment Upcoming Encounters Date Type Department Care Team (Late st Contact Info) Description 03/27/2025 1:15 PM CDT Office Visit [facility] Oncology and Hematology [facility] Richard [address] [place] [address] Rajesh Mejía MD [address] [employer] [address] [place] [address] documented as of this encounter Procedures [...] on filedocumented in this encounter Care Teams Director Of Analytical Development Relationship Specialty Start Date End Date Arvin Hurst MD [address] [place] [address] PCP - General 08/20/08 documented as of this encounter
--- OUTSIDE RECORDS SUMMARY | 2025-03-20 09:12 | XMS_ITS | Clinical Summary ---
Author Organization [facility] Address [address] [address] Care Team Providers Care Chemistry Quality Control Analyst Name Role Phone Arvin Hurst MD Primary Care Provider [phone] Source Comments [facility],non-owned Affiliates and Associated Physician Practices is amultiple site organization consisting of ambulatory clinics and hospital sitesin [place], [place], [place] and [place]. This disclosure is being madepursuant to the Care Everywhere program and may not contain all information available regarding this patient. Last updated 18.[facility] [employer] Allergies No known active allergies Immunizations Immunization [...] complete this topic Insurance [employer] Care Teams Chemistry Quality Control Analyst Relationship Specialty Start Date End Date Arvin Hurst MD [address] [place] [address] PCP - General 03/31/22
[2025-03-20 10:28] LABS: Alanine Aminotransferase 22 U/L (6-35); Albumin Level 4.1 g/dL (3.5-5.1); Alkaline Phosphatase 72 U/L (38-126); Anion Gap 9 mmol/L (4-12); Aspartate Amino Transferase 32 U/L (14-36); Bilirubin,Total 0.3 mg/dL (0.2-1.3); Blood Urea Nitrogen 12 mg/dL (7-17); Calcium 9.1 mg/dL (8.4-10.2); Carbon Dioxide 25 mmol/L (22-30); Chloride 106 mmol/L (98-107); Estimated Glomerular Filt Rate > 60; Glucose 95 mg/dL (65-110); Potassium 4.7 mmol/L (3.4-5.0); Sodium 140 mmol/L (137-145); Total Protein 7.1 g/dL (6.3-8.2)
== END 2025-03-20 08:58 | disposition home or self-care (01) ==
LOC: ANHLAB 08:58
PROVIDERS: PCP Family Medicine; Visit Provider Internal Medicine Hematology & Oncology
DX: C43.59 Malignant melanoma of other part of trunk (principal)
CPT/HCPCS: 36415; 80053; 85025

== ENCOUNTER 2025-07-17 08:06 | Outpatient (CLI) | payer BC, SELFPAY ==
--- NOTE | ~2025-07-17 | CT_ITS ---
EXAMINATION:CT diagnostic chest w con DATE: 07/17/2025 08:30 INDICATION: Malignant melanoma of torso. TECHNIQUE: Computed tomography (CT) of the chest was performed with 75 mL Omnipaque 350 intravenous contrast. Automated exposure control and iterative reconstruction technique were employed. The dose-length product (DLP) was 293.52 mGy-cm. COMPARISON: Chest CT 03/20/2025 FINDINGS: The lungs demonstrate mild atelectasis. There is a new 5 mm nodule in lingula. No pleural effusion. The heart size is normal. There are coronary artery calcifications. No pericardial effusion. There are no pathologically enlarged lymph nodes. There is mild thoracic spondylosis. There are bridging endplate osteophytes at multiple levels in the spine, consistent with diffuse idiopathic skeletal hyperostosis (DISH). IMPRESSION: 1. New 5 mm nodule in lingula, which is indeterminate for metastatic disease. Reviewed, dictated and finalized at location E[facility]
--- OUTSIDE RECORDS SUMMARY | 2025-07-17 08:11 | XMS_ITS | Clinical Summary ---
Author Organization [facility] [place] Address [address] [place] [address] Phone Care Team Providers Care Kiln Tender Name Role Phone Arvin Hurst MD Primary Care Provider [phone] Allergies No known active allergies Medications Irbesartan [...] PLUS ORAL) Take by mouth. 1 Active Skpis-3-FEA-EP A-Fish Oil 1,200 (144-216) mg Capsule Active [...] Take 80 mg by mouth daily. Active OneTouch Ultra Test Strip USE TO TEST ONCE [...] Encounters Date Type Department Care Team Description 07/03/2025 External Device Data STL ABSTRACTION Provider, Abstract 06/06/2025 External Device Data ST[facility] ABSTRACTION Provider, Abstract 05/22/2025 External Device Data [facility] ABSTRACTION Provider, Abstract 04/24/2025 External Device Data ST[facility] ABSTRACTION Provider, Abstract 04/17/2025 External Device Data ST[facility] ABSTRACTION Provider, Abstract [...] on file Legal Sex Female 5:40 AM HERITAGE CONSULTANT Gender Identity Not on file Sexual Orientation Not on file Last Filed Vital Signs Vital Sign Reading Time Taken Comments Blood Pressure 170/98 03/27/2025 1:00 PM CDT Pulse 86 03/27/2025 1:00 PM CDT Temperature 36.6 C (97.9 F) 03/27/2025 1:00 PM CDT Respiratory Rate 16 11/15/2024 11:24 AM CDT Oxygen Saturation 98% 03/27/2025 1:00 PM CDT Inhaled Oxygen Concentration - - Weight 104.3 kg (230 lb) 03/27/2025 1:00 PM CDT Height 165.1 cm (5' 5) 03/27/2025 1:00 PM CDT Body Mass Index 38.27 03/27/2025 1:00 PM CDT Plan of Treatment Upcoming Encounters Date Type Department Care Team (Late st Contact Info) Description 07/31/2025 2:15 PM HERITAGE CONSULTANT Office Visit [facility] Oncology and Hematology [facility] [address] [facility] [address] [place] [address] Rajesh Mejía MD [address] [facility] [address] [place] [address] Health Maintenance Due Date Last [...] WO CAD Routine 03/15/2025 12:39 PM CDT from Last 3 Months or Most Recently Relevant to Health Maintenance Results * MAMMO DIAGNOSTIC UNI RIGHT W OR WO CAD (03/15/2025 12:39 PM CDT) Anatomical Region Laterality Modality Breast Right Mammography Rajesh Mejía MD MAMMO ORDERABLES Final Result from Last 3 Months or Most Recently Relevant to Health Maintenance Insurance [facility] [employer] [address] BLUE ACCESS CHOICE Care Teams Kiln Tender Relationship Specialty Start Date End Date Arvin Hurst MD [address] [place] [phone] PCP - General 08/20/08
--- OUTSIDE RECORDS SUMMARY | 2025-07-17 08:11 | XMS_ITS | Clinical Summary ---
Author Organization [facility] Address [address] [place] [address] Care Team Providers Care Forensic Materials Engineer Name Role Phone Arvin Hurst MD Primary Care Provider Source Comments [facility],non-owned Affiliates and Associated Physician Practices is amultiple site organization consisting of ambulatory clinics and hospital sitesin [place], [place], [place] and [place]. This disclosure is being madepursuant to the Care Everywhere program and may not contain all information available regarding this patient. Last updated 18.[facility] [employer] Allergies No known active allergies Immunizations Immunization [...] 04/20/1980 DTAP/TDAP/TD VACCINES (1 - Tdap) 1981 PAP SMEAR 1983 Cervical Cancer Screening 1992 PAP with HPV 1992 PNEUMOCOCCAL VACCINE 50+ (1 of 1 - PCV) 2012 ZOSTER VACCINE (1 of 2) 2012 DEPRESSION SCREENING 08/16/2024 COVID-19 VACCINE (1 - 2024-2 6 season) 2025 INFLUENZA VACCINE (#1) 2025 7, 05/11/2016 Respiratory [...] patient's age to complete this topic Insurance Care Teams Forensic Materials Engineer Relationship Specialty Start Date End Date Arvin Hurst MD [address] [place] [address] PCP - General 03/31/22
--- OUTSIDE RECORDS SUMMARY | 2025-07-17 08:11 | XMS_ITS | Encounter Summary ---
Author Organization [facility] Address [address] [place] [address] Care Team Providers Care Analytical Technician Name Role Phone Arvin Hurst MD Primary Care Provider [phone] Encounter Details Date Type Department Care Team (Late st Contact Info) Description 08/29/2008 Outpatient Historical [facility] MRI DEPT Sallie Tamez MD [address] [address] Lump or Mass in Breast Social History Tobacco Use Types Packs/Day Years Used Date Smoking Tobacco: Never Assessed Comments Unknown Sex and Gender Information Value Date Recorded Sex Assigned at Not on file Legal Sex Female 5:40 AM ROLLING MACHINE OPERATOR Gender Identity Not on file Sexual Orientation Not on file documented as of this encounter Plan of Treatment Upcoming Encounters Date Type Department Care Team (Late st Contact Info) Description 07/31/2025 2:15 PM ROLLING MACHINE OPERATOR Office Visit [facility] Oncology and Hematology - [place] [address] [facility] [address] [place] [address] Rajesh Mejía MD [address] [facility] [address] [place] [address] documented as of this encounter Procedures Procedure Name Priority Date/Time Associated Diagnosis Comments MRI BREAST W CONTRAST BILAT Timed Study 08/29/2008 2:52 PM ROLLING MACHINE OPERATOR documented in this encounter Results * MRI BREAST W CONTRAST BILAT (08/29/2008 2:52 PM ROLLING MACHINE OPERATOR) Anatomical Region Laterality Modality Breast Bilateral Other 08/29/2008 2:52 PM ROLLING MACHINE OPERATOR Narrative 09/04/2008 10:21 PM ROLLING MACHINE OPERATOR [facility] [address] [place], [place] [address] Admit Date: 08/29/2008 ELI DYKES Sex: F Admit Prov: SALLIE TAMEZ Date: 1960 Primary Care Prov: CMRN: [id number] Room: MRI-A SSN: [id number] IMAGING SERVICES Ordering Prov: SALLIE TAMEZ Accession Number: [id number] Addendum The patient's prior study from [facility] dated March 2005, April 2006 and [...] of [employer]. Images were reviewed on the [employer] workstation. Breast Composition: Scattered fibroglandular densities. Background [...] SDJ Procedure Note Lata Rolle - 09/04/[address] [address] Admit Date: 08/29/2008 ELI DYKES Sex: F Admit Prov: SALLIE TAMEZ Date: 1960 Primary Care Prov: CMRN: [id number] Room: [facility] SSN: [id number] IMAGING SERVICES Ordering Prov: BENTLEY TAMEZJOLLY Glass Addendum The patient's prior study from [facility] dated March 2005, April 2006 and [...] ml of [employer]. Imageswere reviewed on the [employer] workstation. Breast Composition: Scattered fibroglandular densities. Background [...] breast documented in this encounter Care Teams Analytical Technician Relationship Specialty Start Date End Date Arvin Hurst MD [address] [place] [phone] PCP - General 08/20/08 documented as of this encounter
[2025-07-17 08:28] LABS: Estimated Glomerular Filt Rate > 60
== END 2025-07-17 08:07 | disposition home or self-care (01) ==
PROVIDERS: PCP Family Medicine; Visit Provider Internal Medicine Hematology & Oncology
DX: C43.59 Malignant melanoma of other part of trunk (principal)
CPT/HCPCS: 71260; Q9967

== ENCOUNTER 2025-07-17 08:41 | Outpatient (CLI) | payer BC, SELFPAY ==
--- OUTSIDE RECORDS SUMMARY | 2025-07-17 08:54 | XMS_ITS | Clinical Summary ---
Author Organization [facility] [place] Address [address] [place] [address] Phone Care Team Providers Care Astrochemist Name Role Phone Arvin Hurst MD Primary Care Provider [phone] Allergies No known active allergies Medications Irbesartan [...] PLUS ORAL) Take by mouth. 1 Active Buleo-5-WRT-EP A-Fish Oil 1,200 (144-216) mg Capsule Active [...] on file Legal Sex Female 5:40 AM TICKETER Gender Identity Not on file Sexual Orientation [...] st Contact Info) Description 07/31/2025 2:15 PM TICKETER Office Visit [facility] Oncology and Hematology [facility] [address] [email or web address] [address] [place] [address] Rajesh Mejía MD [address] [facility] [address] [place] [address] Health Maintenance Due Date Last [...] Visit- Commercial 08/16/2024 INFLUENZA VACCINE (#1) 2025 , 05/26/2017, 05/11/2016 BREAST CANCER SCREENING 03/15/2026 03/15/20 [...] Most Recently Relevant to Health Maintenance Insurance [facility] [address] BLUE ACCESS CHOICE Care Teams Astrochemist Relationship Specialty Start Date End Date Arvin Hurst MD [address] [place] [address] PCP - General 08/20/08
--- OUTSIDE RECORDS SUMMARY | 2025-07-17 08:54 | XMS_ITS | Encounter Summary ---
Author Organization [facility] Address [address] [place] [address] Care Team Providers Care Hogshead Inspector Name Role Phone Arvin Hurst MD Primary Care Provider [phone] Encounter Details Date Type Department Care Team (Late st Contact Info) Description 08/29/2008 Outpatient Historical HIS MRI DEPT Sallie Tamez MD [address] [address] Lump or Mass in Breast Social History Tobacco Use Types Packs/Day Years Used Date Smoking Tobacco: Never Assessed Comments Unknown Sex and Gender Information Value Date Recorded Sex Assigned at Not on file Legal Sex Female 5:40 AM WELT TRIMMING MACHINE OPERATOR Gender Identity Not on file Sexual Orientation Not on file documented as of this encounter Plan of Treatment Upcoming Encounters Date Type Department Care Team (Late st Contact Info) Description 07/31/2025 2:15 PM WELT TRIMMING MACHINE OPERATOR Office Visit [facility] Oncology and Hematology - [place] [address] [facility] [address] [place] [address] Rajesh Mejía MD [address] [facility] [address] [place] [address] documented as of this encounter Procedures Procedure Name Priority Date/Time Associated Diagnosis Comments MRI BREAST W CONTRAST BILAT Timed Study 08/29/2008 2:52 PM WELT TRIMMING MACHINE OPERATOR documented in this encounter Results * MRI BREAST W CONTRAST BILAT (08/29/2008 2:52 PM WELT TRIMMING MACHINE OPERATOR) Anatomical Region Laterality Modality Breast Bilateral Other 08/29/2008 2:52 PM WELT TRIMMING MACHINE OPERATOR Narrative 09/04/2008 10:21 PM WELT TRIMMING MACHINE OPERATOR [facility] [address] [place], [place] [address] Admit Date: 08/29/2008 ELI DYKES Sex: F Admit Prov: SALLIE TAMEZ Date: 1960 Primary Care Prov: CMRN: [id number] Room: MRI-A SSN: [id number] IMAGING SERVICES Ordering Prov: SALLIE TAMEZ Accession Number: [id number] Addendum The patient's prior study from [facility] dated March 2005, April 2006 [...] of [employer]. Images were reviewed on the [employer] workstation. Breast Composition: Scattered fibroglandular densities. Background [...] SDJ Procedure Note Lata Rolle - 09/04/[address] [address] Admit Date: 08/29/2008 ELI DYKES Sex: F Admit Prov: SALLIE TAMZE Date: 1960 Primary Care Prov: CMRN: [id number] Room: [facility] SSN: [id number] IMAGING SERVICES Ordering Prov: BENTLEY TAMEZJOLLY Glass [...] ml of [employer]. Imageswere reviewed on the [employer] workstation. Breast Composition: Scattered fibroglandular densities. Background [...] breast documented in this encounter Care Teams Hogshead Inspector Relationship Specialty Start Date End Date Arvin Hurst MD [address] [place] [phone] PCP - General 08/20/08 documented as of this encounter
--- OUTSIDE RECORDS SUMMARY | 2025-07-17 08:54 | XMS_ITS | Clinical Summary ---
Author Organization [facility] Address [address] [place] [address] Care Team Providers Care Leak Patcher Name Role Phone Arvin Hurst MD Primary Care Provider [phone] Source Comments [facility],non-owned Affiliates and Associated Physician Practices is amultiple site organization consisting of ambulatory clinics and hospital sitesin [place], [place], [place] and [place]. This disclosure is being madepursuant to the Care Everywhere program and may not contain all information available regarding this patient. Last updated 18.[facility] [place] Allergies No known active allergies Immunizations Immunization [...] to complete this topic Insurance Care Teams Leak Patcher Relationship Specialty Start Date End Date Arvin Hurst MD [address] [place] [address] PCP - General 03/31/22
[2025-07-17 09:28] LABS: Hematocrit 41.2 % (37.0-47.0); Hemoglobin 13.9 g/dL (12.0-15.0); Immature Granulocyte Percent A 0.2 % (0-0.5); Lymphocytes Absolute Auto 2.11 K/mm3 (0.9-3.2); Mean Corpuscular HGB Conc 33.7 g/dl (32-36); Mean Corpuscular Hemoglobin 31.8 pg (26-34); Mean Corpuscular Volume 94.3 fl (80-100); Nucleated Red Blood Cells Absolute Auto 0.000 K/mm3 (0.0-0.012); Nucleated Red Blood Cells Perc 0.0 % (0.0-0.2); Platelet Count Result 273 k/mm3 (150-375); Red Blood Count 4.37 M/mm3 (4.2-5.4); White Blood Count 8.6 K/mm3 (4.5-10.0)
[2025-07-17 12:34] LABS: Alanine Aminotransferase 23 U/L (6-35); Albumin Level 4.2 g/dL (3.5-5.1); Alkaline Phosphatase 67 U/L (38-126); Anion Gap 4 mmol/L (4-12); Aspartate Amino Transferase 43 U/L (14-36); Bilirubin,Total 0.5 mg/dL (0.2-1.3); Blood Urea Nitrogen 9 mg/dL (7-17); Calcium 9.1 mg/dL (8.4-10.2); Carbon Dioxide 27 mmol/L (22-30); Chloride 106 mmol/L (98-107); Estimated Glomerular Filt Rate > 60; Glucose 101 mg/dL (65-110); Potassium 4.4 mmol/L (3.4-5.0); Sodium 137 mmol/L (137-145); Total Protein 7.4 g/dL (6.3-8.2)
== END 2025-07-17 08:42 | disposition home or self-care (01) ==
LOC: ANHLAB 08:42
PROVIDERS: PCP Family Medicine; Visit Provider Internal Medicine Hematology & Oncology
DX: C43.59 Malignant melanoma of other part of trunk (principal)
CPT/HCPCS: 36415; 80053; 85025